=== PATIENT | male | born 1955 | race Caucasian/White ===

== ENCOUNTER 2017-02-03 16:18 | Inpatient (IN) ==
[2017-02-03] MEDS ORDERED: NON-FORMULARY MEDICATION 1 EACH EACH (Oxygen [Oxygen] 3 L) SCH (17:15)
[2017-02-03] MEDS ORDERED: CloNIDine Patch 0.1 MG PATCH (WEEKLY) TD SCH (17:15)
[2017-02-03] MEDS: *HR* Enoxaparin 40 MG/0.4 ML SYRINGE SQ SCH (20:17)
[2017-02-03] MEDS: Azelastine 0.1% Nasal Spray 30 ML BOTTLE NS SCH (20:17)
[2017-02-03] MEDS: Furosemide 40 MG TABLET PO SCH (20:17)
[2017-02-03] MEDS: Psyllium 1 PACKET POWD.PACK PO SCH (20:18)
[2017-02-03] MEDS: Budesonide/Formoterol 160/4.5 MDI IH SCH (20:47)
[2017-02-03] MEDS: ClonazePAM 0.5 MG TABLET PO PRN (22:28)
[2017-02-03] MEDS: *HR* OxyCODONE/APAP 10/325 TABLET PO PRN (22:32)
[2017-02-04] MEDS: *HR* OxyCODONE/APAP 10/325 TABLET PO PRN ×3 (05:42→18:11)
[2017-02-04] MEDS: *HR* Enoxaparin 40 MG/0.4 ML SYRINGE SQ SCH (05:42)
[2017-02-04] MEDS: Psyllium 1 PACKET POWD.PACK PO SCH ×2 (07:55→22:11)
[2017-02-04] MEDS: Cholecalciferol (D-3) 1,000 UNIT TABLET PO SCH (07:55)
[2017-02-04] MEDS: Loratadine 10 MG TABLET PO SCH (07:55)
[2017-02-04] MEDS: Azelastine 0.1% Nasal Spray 30 ML BOTTLE NS SCH ×2 (07:56→22:11)
[2017-02-04] MEDS: Fluticasone Propionate Nasal 50 MCG/SPRAY BOTTLE NS SCH (07:56)
[2017-02-04] MEDS: DALIRESP 500MCG PO SCH (07:59)
[2017-02-04] MEDS: INCRUSE ELIPTA IH SCH (08:00)
[2017-02-04] MEDS: Furosemide 40 MG TABLET PO SCH ×2 (08:00→10:52)
[2017-02-04] MEDS ORDERED: Aspirin Enteric Coated 81 MG Tablet PO SCH (09:00)
[2017-02-04] MEDS ORDERED: PredniSONE 20 MG TABLET PO SCH (09:00)
[2017-02-04] MEDS: Budesonide/Formoterol 160/4.5 MDI IH SCH ×2 (11:00→20:55)
--- NOTE | 2017-02-04 12:48 | General Surgery Progress Note ---
Date of Encounter: 02/04/17 Time of Encounter: 11:15 - Assessment and Plan (1) Superficial postoperative wound infection Current Visit: Yes Status: Acute Continue with iodoform packing until negative pressure wound dressing is available. White foam proximally and distally in the tunnels at the 12 and 6 o' clock position if possible black foam centrally in the wound. Apply negative pressure wound dressing -125 mmHg pressure Qualifiers: Encounter type: subsequent encounter Qualified Code(s): T81.4XXD - Infection following a procedure, subsequent encounter Subjective Narrative: The patient has had increased drainage from his wound. He is status post exploratory laparotomy and small bowel resection for small bowel obstruction. He has end-stage COPD and tremendous morbid obesity and was on the ventilator for 3 days during the postoperative period he had developed some drainage from his wound now has increased drainage. On physical examination the subcutaneous tissue is open with tunneling superiorly and inferiorly from the opened midportion wound. We will remove additional mariama. Packed the wound with iodoform until a wound VAC is available. They will apply wound VAC with black foam. Objective Vital Signs - Last 8 Hours Temp Pulse Resp BP Pulse Ox 02/04/17 11:13 111 18 154/72 97 02/04/17 10:46 99.4 F 111 18 154/72 97 02/04/17 10:33 94 L 02/04/17 08:19 24 94 L 02/04/17 07:34 99.0 F 123 18 90/57 98 Intake and Output 02/03/17 02/04/17 02/04/17 23:59 07:59 15:59 Output Total 200 / 200 Balance -200 / -200 Output: Urine 200 / 200 Other: Stool Size Copious Stool Consistency loose Stool Color Brown Blood Tinged # Voids 1 # Bowel Movements 1 Weight 137.438 kg - General physical appearance chronically ill, obese - Respiratory wheezing: bilateral (Decreased breath sounds bilaterally) - Cardiovascular Cardiovascular exam: Present: RRR, no murmurs/rubs/gallops - Incision Incision: Present: draining (The middle portion of the incision is opened. This tunneling superiorly and inferiorly. This is still superficial wound infection. This should be treated with negative pressure wound dressing) - Neurologic normal coordination, normal sensation Consult Discharge Plan - Plan Referrals: Radhames Lewis DO [Primary Care Provider] - 1 week
[2017-02-04] MEDS: Ketoconazole Shampoo 120 ML BOTTLE TP SCH (13:39)
--- NOTE | 2017-02-04 14:42 | Internal Med History&Physical ---
Date of Encounter: 02/04/17 Time of Encounter: 14:10 Assessment and Plan (1) Partial small bowel obstruction Current visit: No Status: Acute Status post lysis of adhesions and partial small bowel resection with primary anastomosis. Continue wound VAC and other intervention as per Dr. Reed (2) HTN (hypertension) Current visit: No Status: Chronic Will increase metoprolol and discontinue Norvasc because of edema. We will change Lasix to Bumex. Continue Cozaar Qualifiers: Hypertension type: essential hypertension Qualified Code(s): I10 - Essential (primary) hypertension (3) Obstructive sleep apnea Current visit: No Status: Chronic Continue CPAP/BiPAP as at home (4) Anemia Current visit: No Status: Chronic Will order anemia testing in a.m. Qualifiers: Anemia type: iron deficiency Iron deficiency anemia type: chronic blood loss Qualified Code(s): D50.0 - Iron deficiency anemia secondary to blood loss (chronic) (5) Edema Current visit: Yes Status: Chronic We will discontinue amlodipine and give Bumex instead of Lasix as per above. Qualifiers: Edema type: unspecified Qualified Code(s): R60.9 - Edema, unspecified (6) Borderline diabetes Current visit: No Status: Chronic Hemoglobin A1c was 6.0% on 12/20/2016. We will do Accu-Cheks with SSI. Internal Medicine - H&P: HPI Chief complaint: Bowel obstruction, weakness Admitted From: Hospital to Hospital Transfer Plans for Post Hospital Care: Home History of present illness: Mr. Contreras is a 61 year old male who was transferred to [facility] swing bed 2016 after a January 18 stay at [facility] [place] for bowel obstruction. He underwent partial small bowel resection with lysis of adhesions by Dr. Reed on 2016. His postop course was complicated a difficult extubation and delay of oral feedings requiring TPN briefly. It was felt he would benefit from swing bed stay and ongoing therapy prior to returning to independent living at home. He reports initial abdominal surgery was approximately 2007 for abdominal hernia. Mesh was placed at the surgery. He reports NAFLD and asymptomatic gallstones. He denies other disorders of his liver gallbladder or exocrine pancreas. He has GERD. He has not had colonoscopy done. Past Med Surg Social Fam HX - Past Medical History Medical history: cardiomyopathy, COPD, diabetes, GERD, hypertension, other Psychiatric history: anxiety, depression - Past Surgical History Surgical History: cataract, herniorrhaphy, other - Social History Smoking Status: Former smoker Smokeless Tobacco Status: No Alcohol use: rarely Drug use: none - Family History Father Family Member Ethnicity: Non- Living Status: Hx Family Cardiac Disorders: No Hx Family Respiratory Disorders: No Hx Family Cancer: Yes (pancreatic) Hx Family GI Disorders: No Hx Family Endocrine Disorder: Yes Hx Family Neuromuscular Disorders: No Hx Family Neurologic Disorders: No Hx Family HEENT Disorders: No Hx Family Autoimmune Disorders: No Mother Adopted: No Family Member Ethnicity: Non- Living Status: Hx Family Cardiac Disorders: Yes Hx Family Respiratory Disorders: Yes Hx Family Cancer: Yes (lung cancer) Hx Family GI Disorders: No Hx Family Endocrine Disorder: No Hx Family Neuromuscular Disorders: No Hx Family Neurologic Disorders: No Hx Family HEENT Disorders: No Hx Family Autoimmune Disorders: No Sister Living Status: Hx Family Cardiac Disorders: Yes Hx Family Respiratory Disorders: Yes Hx Family Cancer: No Hx Family GI Disorders: No Hx Family Endocrine Disorder: No Hx Family Neuromuscular Disorders: No Hx Family Neurologic Disorders: No Hx Family HEENT Disorders: No Hx Family Autoimmune Disorders: No Internal Medicine - H&P: Meds Albuterol Sulfate [Albuterol Inhaler] 2 puff IH Q4HR PRN 04/13/16 [History] Amlodipine Besylate 10 mg PO DAILY 04/13/16 [History] Azelastine 0.1% Nasal [place] [Astelin] 1 spray NS BID 04/13/16 [History] Budesonide/Formoterol 160/4.5 [Symbicort 160/4.5] 2 puff IH BIDR 04/13/16 [ History] Cetirizine HCl [Zyrtec] 10 mg PO DAILY 04/13/16 [History] ClonazePAM [Klonopin] 1 mg PO BID PRN 04/13/16 [History] Docusate [Colace] 300 mg PO BID PRN 04/13/16 [History] Ergocalciferol (VITAMIN D2) [Vitamin D] 400 unit PO DAILY 04/13/16 [History] Esomeprazole Magnesium [Nexium] 40 mg PO BID 04/13/16 [History] Fluticasone Propionate Nasal [Flonase] 2 spray NS DAILY 04/13/16 [History] Ketoconazole Shampoo [Nizoral Shampoo] 1 appl TP 3XW 04/13/16 [History] Polyethylene Glycol 3350 [MiraLAX] 17 gm PO DAILY 04/13/16 [History] Psyllium Seed (with Sugar) [Metamucil Powder] 1 each PO BID 04/13/16 [History] Roflumilast [Daliresp] 500 mcg PO DAILY 04/13/16 [History] Sodium Chloride [[place] Saline] 1 spray NS BID PRN 04/13/16 [History] Metoprolol [Lopressor] 12.5 mg PO BID #30 tablet 10/28/16 [Rx] Montelukast [Singulair] 10 mg PO HS #30 tablet 10/28/16 [Rx] Metoclopramide [Reglan] 10 mg PO ACHS 12/01/16 [History] Umeclidinium [place] [Incruse Ellipta] 62.5 mcg IH DAILY 12/01/16 [History] Aspirin [Lo-Dose Aspirin EC] 81 mg PO DAILY #30 tablet. 12/03/16 [Rx] Oxygen 3 l .ROUTE AD 12/18/16 [History] Ipratropium/Albuterol Neb [Duoneb] 3 ml IH [id number] 30 Days 01/07/17 [Rx] Losartan [Cozaar] 25 mg PO DAILY #30 tablet 01/07/17 [Rx] PredniSONE 10 mg PO DAILY #63 tablet 01/07/17 [Rx] CloNIDine Patch [Catapres-Tts] 0.1 mg TD QWEEK patch.tdwk 02/03/17 [Rx] Furosemide [Lasix] 40 mg PO BID #60 tablet 02/03/17 [Rx] GuaiFENesin ER [Mucinex] 600 mg PO BID PRN #0 tbbp.12hr 02/03/17 [Rx] Ipratropium/Albuterol Neb [Duoneb] 3 ml IH [id number] PRN inhsol 02/03/17 [Rx] OxyCODONE/APAP 10/325 [Percocet 10/325 MG] 1 each PO Q6HR PRN #20 tablet [Rx] Allergies morphine Allergy (Verified 01/18/17 10:35) Difficulty Breathing sulfamethoxazole [From Bactrim] Allergy (Verified 01/18/17 10:35) Hives trimethoprim [From Bactrim] Allergy (Verified 01/18/17 10:35) Hives codeine Adverse Reaction (Verified 01/18/17 10:35) Nausea All Systems PM: A 10-system review of systems was performed and is negative for pertinent findings except as documented above in the HPI. Review of systems: Gen.: He states his weight has been stable for several months Cardiovascular: He has a history of hypertension. He reports diagnosis of heart failure but echocardiogram done 01/01/2017 showed LVEF of 55-60%. There was no mention of diastolic dysfunction. There was left atrial enlargement 4.3 cm. The interventricular septum and posterior wall thickness measurements were elevated 1.3 and 1.4 cm respectively. There was no significant valvular abnormality seen. He had a Regadenoson EST 12/02/2016 which showed LVEF of 61% with no EKG or perfusion evidence of ischemia. He denies DVT or pulmonary embolus. Respiratory: He smoked from age [age] up to 3 packs per day. He has a diagnosis of COPD and wears oxygen 30/05 GI: As per history of present illness : Denies hematuria dysuria or kidney stones Neurologic: He denies large distribution strokes or seizures Endocrine: He reports a diagnosis of borderline diabetes. Hemoglobin A1c was 6.0% 12/20/2016. He denies thyroid disease but has hyperlipidemia Hematology/oncology: He has anemia but denies internal malignancies Psychiatric: He has anxiety and depression but denies other mental health issues [place] skeletal: He has DJD but denies gout or other bone joint or muscle disorders. - Constitutional Vitals: Temp Pulse Resp BP Pulse Ox 99.4 F 111 18 154/72 97 02/04/17 10:46 02/04/17 11:13 02/04/17 11:13 02/04/17 11:13 02/04/17 11:13 Exam: Gen.: He is a well-developed overweight male lying in bed who appears in minimal distress at present time. HEENT: Head is atraumatic and normocephalic. Eyes: EOMI. There is no scleral icterus. Mouth: Mucosa is moist. Neck: Supple and nontender. There is no thyromegaly or adenopathy noted. Heart: Regular without murmurs gallops or ectopics. Lungs: No wheezes or crackles are heard. Abdomen: He has a wound VAC in the midportion of the midabdominal incision. Some mariama been removed from the incision. The abdomen is nontender to palpation. Extremities: He has 2-3+ edema of the dorsum of the feet and lower anterior shins bilaterally. Dorsalis pedis and posterior tibial pulses are not palpable. He has minimal DJD changes of his hands. Neurologic: Mental status: He is talkative and a good historian. Cranial nerves : Smile is symmetric. Forehead wrinkles bilaterally. Tongue protrudes midline. EOMI. Motor: There is no pronator drift. Cerebellar: Finger to nose is intact bilaterally. Skin: Warm and dry
[2017-02-04] MEDS: Bumetanide 1 MG TABLET PO SCH (16:33)
[2017-02-04] MEDS: Aspirin Enteric Coated 81 MG Tablet PO SCH (16:34)
[2017-02-05] MEDS: *HR* OxyCODONE/APAP 10/325 TABLET PO PRN ×4 (00:33→23:04)
[2017-02-05] MEDS: ClonazePAM 0.5 MG TABLET PO PRN ×2 (00:34→18:24)
[2017-02-05 05:16] LABS: Hematocrit 29.9 % (37.5-50.1); Hemoglobin 9.8 g/dL (12.9-16.9); Mean Corpuscular HGB Conc 32.8 g/dL (31.6-35.5); Mean Corpuscular Hemoglobin 28.1 pg (28.0-33.3); Mean Corpuscular Volume 85.7 fL (83.0-100.0); Mean Platelet Volume 9.9 fL (9.4-12.4); Platelet Count 295 K/mcL (140-400); Red Blood Count 3.49 M/mcL (4.19-5.50); Red Cell Distribution Width 16.7 % (11.5-14.5)
[2017-02-05] MEDS: *HR* Enoxaparin 40 MG/0.4 ML SYRINGE SQ SCH (05:38)
[2017-02-05 06:43] LABS: Eosinophils # 0.3 K/mcL (0.0-0.6); Lymphocytes # 0.9 K/mcL (0.6-4.6); Monocytes # 0.9 K/mcL (0.0-1.3); Neutrophils # 12.2 K/mcL (1.6-8.9)
[2017-02-05 06:48] LABS: Anisocytosis 1+ (Not Present); Platelet Estimate Normal (Normal)
[2017-02-05] MEDS: Ondansetron ODT 4 MG TAB.RAPDIS SL PRN ×2 (08:44→16:41)
[2017-02-05] MEDS: Psyllium 1 PACKET POWD.PACK PO SCH ×2 (08:45→22:46)
[2017-02-05] MEDS: Cholecalciferol (D-3) 1,000 UNIT TABLET PO SCH (08:46)
[2017-02-05] MEDS: Loratadine 10 MG TABLET PO SCH (08:46)
[2017-02-05] MEDS: Bumetanide 1 MG TABLET PO SCH (08:46)
[2017-02-05] MEDS: Azelastine 0.1% Nasal Spray 30 ML BOTTLE NS SCH ×2 (08:46→22:50)
[2017-02-05] MEDS: Fluticasone Propionate Nasal 50 MCG/SPRAY BOTTLE NS SCH (08:46)
[2017-02-05] MEDS: DALIRESP 500MCG PO SCH (08:47)
[2017-02-05] MEDS: Budesonide/Formoterol 160/4.5 MDI IH SCH ×2 (09:14→22:13)
[2017-02-05] MEDS: INCRUSE ELIPTA IH SCH (12:30)
[2017-02-05 13:02] LABS: % Iron Saturation 6 % (20-55); Iron 12 mcg/dL (65-175); Transferrin 141 mg/dL (174-364)
[2017-02-05 13:22] LABS: Ferritin 667 ng/ml (22-275)
[2017-02-05 13:36] LABS: Folate 8.3 ng/mL (7.0-31.4)
--- NOTE | 2017-02-05 14:45 | Internal Med Progress Note ---
Date of Encounter: 02/05/17 Time of Encounter: 14:35 - Assessment and plan (1) Partial small bowel obstruction Current Visit: No Status: Acute Assessment and plan: February 05. Status post lysis of adhesions and partial small bowel resection with primary anastomosis. Continue wound VAC and other intervention as per Dr. Reed (2) HTN (hypertension) Current Visit: No Status: Chronic Assessment and plan: February 05. Continue metoprolol, Bumex, and Cozaar. Qualifiers: Hypertension type: essential hypertension Qualified Code(s): I10 - Essential (primary) hypertension (3) Obstructive sleep apnea Current Visit: No Status: Chronic Assessment and plan: February 05. Continue CPAP/BiPAP as at home (4) Anemia Current Visit: No Status: Chronic Assessment and plan: February 05. Serum iron and transferrin saturation are low but transferrin is also low with ferritin significantly elevated. Continue to monitor CBC. Qualifiers: Anemia type: iron deficiency Iron deficiency anemia type: chronic blood loss Qualified Code(s): D50.0 - Iron deficiency anemia secondary to blood loss (chronic) (5) Edema Current Visit: Yes Status: Chronic Assessment and plan: February 05. Remain off Norvasc and continue Bumex. Qualifiers: Edema type: unspecified Qualified Code(s): R60.9 - Edema, unspecified (6) Borderline diabetes Current Visit: No Status: Chronic Assessment and plan: February 05. Hemoglobin A1c was 6.0% on 12/20/2016. He is diet controlled at present. (7) Pneumonia Current Visit: No Status: Acute Assessment and plan: Will give IV Zosyn and Levaquin with Robitussin and probiotic Qualifiers: Pneumonia type: due to unspecified organism Laterality: left Lung location: lower lobe of lung Qualified Code(s): J18.1 - Lobar pneumonia, unspecified organism - Subjective Interval history: February 05. He states his dyspnea has worsened. He has cough productive of green/ yellow sputum - Constitutional Vitals: Temp Pulse Resp BP Pulse Ox 97.7 F 92 17 92/59 97 02/04/17 18:40 02/05/17 09:00 02/05/17 12:33 02/05/17 09:00 02/05/17 12:33 Exam: He is resting comfortably in a chair. He coughed minimally during examination. His lungs show no wheezes crackles or egophony. Edema is slightly improved in his lower legs. I reviewed his medications and lab results. Internal Medicine: Result - Labs CBC & Chem 7: 02/05/17 04:48 Labs: Short CBC 02/05/17 Range/Units 04:48 WBC 14.2 H D (4.3-11.1) K/mcL Hgb 9.8 L (12.9-16.9) g/dL Hct 29.9 L (37.5-50.1) % Plt Count 295 (140-400) K/mcL Neutrophils # 12.2 H (1.6-8.9) K/mcL - Impressions Impressions Chest X-Ray 02/04/17 17:40 IMPRESSION: Small to moderate left pleural effusion and left basilar airspace opacities. D/ / Nakul Lopez MD / Nakul Lopez MD Interpreting Provider: Nakul Lopez MD Consult Discharge Plan - Plan Referrals: Radhames Lewis DO [Primary Care Provider] - 1 week
[2017-02-05] MEDS: Levofloxacin 750 MG/150 ML 750 MG/150 ML BAG IVPB SCH (16:56)
[2017-02-05] MEDS: Piperacillin/Tazobactam 3.375 GM in D5% in Water (Mini-Bag+) 100 ML IVPB SCH (18:21)
[2017-02-05] MEDS: Lactobacillus 1 EACH CAP.SPRINK PO SCH (22:46)
[2017-02-06] MEDS: Piperacillin/Tazobactam 3.375 GM in D5% in Water (Mini-Bag+) 100 ML IVPB SCH ×4 (04:18→20:38)
[2017-02-06 06:15] LABS: Hematocrit 29.1 % (37.5-50.1); Hemoglobin 9.4 g/dL (12.9-16.9); Mean Corpuscular HGB Conc 32.3 g/dL (31.6-35.5); Mean Corpuscular Volume 86.6 fL (83.0-100.0); Mean Platelet Volume 10.1 fL (9.4-12.4); Platelet Count 297 K/mcL (140-400); Red Blood Count 3.36 M/mcL (4.19-5.50); Red Cell Distribution Width 16.5 % (11.5-14.5)
[2017-02-06 06:32] LABS: BUN/Creatinine Ratio 18 (6-26); Blood Urea Nitrogen 22 mg/dL (8-26); Calcium 8.1 mg/dL (8.6-10.8); Carbon Dioxide 29 mEq/L (19-29); Chloride 93 mEq/L (98-109); Glucose 155 mg/dL (70-99); Osmolality,Calculated 288 (280-300); Potassium 3.3 mEq/L (3.5-4.5); Sodium 136 mEq/L (136-145); eGFR For African Americans > 60 (> 60); eGFR For Non-African Americans 58 (> 60)
[2017-02-06] MEDS: *HR* Enoxaparin 40 MG/0.4 ML SYRINGE SQ SCH (07:17)
[2017-02-06] MEDS: *HR* OxyCODONE/APAP 10/325 TABLET PO PRN ×3 (07:21→21:36)
[2017-02-06 07:41] LABS: Lymphocytes # 1.2 K/mcL (0.6-4.6); Monocytes # 0.5 K/mcL (0.0-1.3); Neutrophils # 9.7 K/mcL (1.6-8.9); Toxic Granulation Present (Not Present)
[2017-02-06] MEDS: Ipratropium/Albuterol Neb 3 ML IH PRN ×2 (09:30→14:02)
[2017-02-06] MEDS: Budesonide/Formoterol 160/4.5 MDI IH SCH ×2 (09:34→21:54)
[2017-02-06] MEDS: Bumetanide 1 MG TABLET PO SCH (09:41)
[2017-02-06] MEDS: Cholecalciferol (D-3) 1,000 UNIT TABLET PO SCH (09:42)
[2017-02-06] MEDS: Lactobacillus 1 EACH CAP.SPRINK PO SCH ×2 (09:42→21:29)
[2017-02-06] MEDS: Loratadine 10 MG TABLET PO SCH (09:43)
[2017-02-06] MEDS: Levofloxacin 750 MG/150 ML 750 MG/150 ML BAG IVPB SCH (09:44)
[2017-02-06] MEDS: Psyllium 1 PACKET POWD.PACK PO SCH ×2 (09:44→21:29)
[2017-02-06] MEDS: DALIRESP 500MCG PO SCH (12:02)
[2017-02-06] MEDS: INCRUSE ELIPTA IH SCH (12:02)
[2017-02-06] MEDS: Fluticasone Propionate Nasal 50 MCG/SPRAY BOTTLE NS SCH (12:08)
[2017-02-06] MEDS: Azelastine 0.1% Nasal Spray 30 ML BOTTLE NS SCH ×2 (12:08→21:58)
--- NOTE | 2017-02-06 12:40 | Internal Med Progress Note ---
Date of Encounter: 02/06/17 Time of Encounter: 12:30 - Assessment and plan (1) Partial small bowel obstruction Current Visit: No Status: Acute Assessment and plan: February 05. Status post lysis of adhesions and partial small bowel resection with primary anastomosis. Continue wound VAC and other intervention as per Dr. Reed (2) HTN (hypertension) Current Visit: No Status: Chronic Assessment and plan: February 05. Continue metoprolol, Bumex, and Cozaar. February 06. Blood pressure is borderline low. We will discontinue Cozaar and clonidine. Continue metoprolol and Bumex for now Qualifiers: Hypertension type: essential hypertension Qualified Code(s): I10 - Essential (primary) hypertension (3) Obstructive sleep apnea Current Visit: No Status: Chronic Assessment and plan: February 05. Continue CPAP/BiPAP as at home (4) Anemia Current Visit: No Status: Chronic Assessment and plan: February 05. Serum iron and transferrin saturation are low but transferrin is also low with ferritin significantly elevated. Continue to monitor CBC. Qualifiers: Anemia type: iron deficiency Iron deficiency anemia type: chronic blood loss Qualified Code(s): D50.0 - Iron deficiency anemia secondary to blood loss (chronic) (5) Edema Current Visit: Yes Status: Chronic Assessment and plan: February 05. Remain off Norvasc and continue Bumex. February 06. Continues to improve off Norvasc and using Bumex Qualifiers: Edema type: unspecified Qualified Code(s): R60.9 - Edema, unspecified (6) Borderline diabetes Current Visit: No Status: Chronic Assessment and plan: February 05. Hemoglobin A1c was 6.0% on 12/20/2016. He is diet controlled at present. (7) Pneumonia Current Visit: No Status: Acute Assessment and plan: February 05. Will give IV Zosyn and Levaquin with Robitussin and probiotic February 2. Continue IV Zosyn and Levaquin Qualifiers: Pneumonia type: due to unspecified organism Laterality: left Lung location: lower lobe of lung Qualified Code(s): J18.1 - Lobar pneumonia, unspecified organism (8) Left knee pain Current Visit: Yes Status: Acute Assessment and plan: February 06. We will order uric acid level was other labs in a.m. Qualifiers: Chronicity: acute Qualified Code(s): M25.562 - Pain in left knee - Subjective Interval history: February 05. He states his dyspnea has worsened. He has cough productive of green/ yellow sputum February 06. He states his dyspnea is slightly lessened. He complains of some discomfort in his left knee. - Constitutional Vitals: Temp Pulse Resp BP Pulse Ox 97.7 F 101 15 104/66 95 02/06/17 07:21 02/06/17 07:21 02/06/17 09:36 02/06/17 07:21 02/06/17 09:36 Exam: He is sitting in a chair and appears comfortable. His feet are elevated on a stool. His edema appears slightly improved. Lungs show no wheezes or crackles. I reviewed his medications and lab results. Internal Medicine: Result - Labs CBC & Chem 7: 02/06/17 05:40 02/06/17 05:40 Labs: Short CBC 02/06/17 Range/Units 05:40 WBC 11.5 H (4.3-11.1) K/mcL Hgb 9.4 L (12.9-16.9) g/dL Hct 29.1 L (37.5-50.1) % Plt Count 297 (140-400) K/mcL Neutrophils # 9.7 H (1.6-8.9) K/mcL BMP 02/06/17 05:40 Sodium 136 Potassium 3.3 L Chloride 93 L Carbon Dioxide 29 BUN 22 Creatinine 1.25 Glucose 155 H Calcium 8.1 L Consult Discharge Plan - Plan Referrals: Radhames Lewis DO [Primary Care Provider] - 1 week
[2017-02-06] MEDS: Aspirin Enteric Coated 81 MG Tablet PO SCH (13:55)
[2017-02-06] MEDS: Simethicone 80 MG TAB.CHEW PO PRN (14:55)
[2017-02-06] MEDS: ClonazePAM 0.5 MG TABLET PO PRN (17:17)
[2017-02-06] MEDS: Ondansetron ODT 4 MG TAB.RAPDIS SL PRN (20:38)
[2017-02-07] MEDS: Piperacillin/Tazobactam 3.375 GM in D5% in Water (Mini-Bag+) 100 ML IVPB SCH ×2 (04:08→15:50)
[2017-02-07] MEDS: *HR* Enoxaparin 40 MG/0.4 ML SYRINGE SQ SCH (04:58)
[2017-02-07] MEDS: *HR* OxyCODONE/APAP 10/325 TABLET PO PRN ×2 (05:01→20:34)
[2017-02-07 06:25] LABS: Hematocrit 28.1 % (37.5-50.1); Hemoglobin 9.1 g/dL (12.9-16.9); Mean Corpuscular HGB Conc 32.4 g/dL (31.6-35.5); Mean Corpuscular Hemoglobin 28.2 pg (28.0-33.3); Mean Platelet Volume 10.2 fL (9.4-12.4); Platelet Count 316 K/mcL (140-400); Red Blood Count 3.23 M/mcL (4.19-5.50); Red Cell Distribution Width 16.4 % (11.5-14.5)
[2017-02-07 06:49] LABS: BUN/Creatinine Ratio 11 (6-26); Blood Urea Nitrogen 15 mg/dL (8-26); Calcium 8.1 mg/dL (8.6-10.8); Carbon Dioxide 30 mEq/L (19-29); Chloride 93 mEq/L (98-109); Glucose 109 mg/dL (70-99); Osmolality,Calculated 281 (280-300); Potassium 3.6 mEq/L (3.5-4.5); Sodium 135 mEq/L (136-145); Uric Acid 5.6 mg/dL (3.5-7.2); eGFR For African Americans > 60 (> 60); eGFR For Non-African Americans 54 (> 60)
[2017-02-07 07:30] LABS: Basophils # 0.2 K/mcL (0.0-0.2); Eosinophils # 0.2 K/mcL (0.0-0.6); Lymphocytes # 2.1 K/mcL (0.6-4.6); Monocytes # 0.5 K/mcL (0.0-1.3); Neutrophils # 7.1 K/mcL (1.6-8.9); Platelet Estimate Normal (Normal)
[2017-02-07] MEDS: Lactobacillus 1 EACH CAP.SPRINK PO SCH ×2 (09:41→20:34)
[2017-02-07] MEDS: Bumetanide 1 MG TABLET PO SCH (09:41)
[2017-02-07] MEDS: Psyllium 1 PACKET POWD.PACK PO SCH ×2 (09:41→20:34)
[2017-02-07] MEDS: Cholecalciferol (D-3) 1,000 UNIT TABLET PO SCH (09:41)
[2017-02-07] MEDS: Loratadine 10 MG TABLET PO SCH (09:41)
[2017-02-07] MEDS: Fluticasone Propionate Nasal 50 MCG/SPRAY BOTTLE NS SCH (09:42)
[2017-02-07] MEDS: Ondansetron ODT 4 MG TAB.RAPDIS SL PRN ×2 (09:42→20:35)
[2017-02-07] MEDS: Levofloxacin 750 MG/150 ML 750 MG/150 ML BAG IVPB SCH (09:42)
[2017-02-07] MEDS: ClonazePAM 0.5 MG TABLET PO PRN ×2 (09:42→20:34)
[2017-02-07] MEDS: Azelastine 0.1% Nasal Spray 30 ML BOTTLE NS SCH ×2 (09:42→20:33)
[2017-02-07] MEDS: Budesonide/Formoterol 160/4.5 MDI IH SCH ×2 (10:48→21:52)
[2017-02-07] MEDS: Ipratropium/Albuterol Neb 3 ML IH PRN ×2 (10:48→21:53)
[2017-02-07] MEDS: DALIRESP 500MCG PO SCH (10:54)
[2017-02-07] MEDS: Ketoconazole Shampoo 120 ML BOTTLE TP SCH (10:54)
[2017-02-07] MEDS: INCRUSE ELIPTA IH SCH (10:55)
--- NOTE | 2017-02-07 14:39 | Internal Med Progress Note ---
Date of Encounter: 02/07/17 Time of Encounter: 14:30 - Assessment and plan (1) Partial small bowel obstruction Current Visit: No Status: Acute Assessment and plan: February 05. Status post lysis of adhesions and partial small bowel resection with primary anastomosis. Continue wound VAC and other intervention as per Dr. Reed (2) HTN (hypertension) Current Visit: No Status: Chronic Assessment and plan: February 05. Continue metoprolol, Bumex, and Cozaar. February 2. Blood pressure is borderline low. We will discontinue Cozaar and clonidine. Continue metoprolol and Bumex for now Qualifiers: Hypertension type: essential hypertension Qualified Code(s): I10 - Essential (primary) hypertension (3) Obstructive sleep apnea Current Visit: No Status: Chronic Assessment and plan: February 05. Continue CPAP/BiPAP as at home (4) Anemia Current Visit: No Status: Chronic Assessment and plan: February 05. Serum iron and transferrin saturation are low but transferrin is also low with ferritin significantly elevated. Continue to monitor CBC. February 07. Hemoglobin has decreased to 9.1. We will continue to monitor. Qualifiers: Anemia type: iron deficiency Iron deficiency anemia type: chronic blood loss Qualified Code(s): D50.0 - Iron deficiency anemia secondary to blood loss (chronic) (5) Edema Current Visit: Yes Status: Chronic Assessment and plan: February 05. Remain off Norvasc and continue Bumex. February 06. Continues to improve off Norvasc and using Bumex Qualifiers: Edema type: unspecified Qualified Code(s): R60.9 - Edema, unspecified (6) Borderline diabetes Current Visit: No Status: Chronic Assessment and plan: February 05. Hemoglobin A1c was 6.0% on 12/20/2016. He is diet controlled at present. (7) Pneumonia Current Visit: No Status: Acute Assessment and plan: February 05. Will give IV Zosyn and Levaquin with Robitussin and probiotic February 2. Continue IV Zosyn and Levaquin Qualifiers: Pneumonia type: due to unspecified organism Laterality: left Lung location: lower lobe of lung Qualified Code(s): J18.1 - Lobar pneumonia, unspecified organism (8) Left knee pain Current Visit: Yes Status: Acute Assessment and plan: February 06. We will order uric acid level was other labs in a.m. February 07. Uric acid level was normal at 5.6. D-dimer was significantly elevated at 2095. Proceed with bilateral leg venous Doppler studies Qualifiers: Chronicity: acute Qualified Code(s): M25.562 - Pain in left knee - Subjective Interval history: February 05. He states his dyspnea has worsened. He has cough productive of green/ yellow sputum February 06. He states his dyspnea is slightly lessened. He complains of some discomfort in his left knee. February 07. His dyspnea is improved. He still has some discomfort in his left thigh. - Constitutional Vitals: Temp Pulse Resp BP Pulse Ox 98.5 F 104 18 99/59 96 02/07/17 07:05 02/07/17 13:44 02/07/17 13:44 02/07/17 13:44 02/07/17 13:44 Exam: He is resting comfortably on the side of the bed. Respirations are not labored. Lungs are clear without wheezes crackles or egophony. His edema appears to be less. I reviewed his medications and lab results. Internal Medicine: Result - Labs CBC & Chem 7: 02/07/17 05:22 02/07/17 05:22 Labs: Short CBC 02/07/17 Range/Units 05:22 WBC 11.5 H (4.3-11.1) K/mcL Hgb 9.1 L (12.9-16.9) g/dL Hct 28.1 L (37.5-50.1) % Plt Count 316 (140-400) K/mcL Neutrophils # 7.1 (1.6-8.9) K/mcL BMP 02/07/17 05:22 Sodium 135 L Potassium 3.6 Chloride 93 L Carbon Dioxide 30 H BUN 15 Creatinine 1.33 H Glucose 109 H Calcium 8.1 L - ABG Interpretation ABG results: PT/INR, D-dimer D-Dimer 2095 ng/mLFEU (0-500) H 02/07/17 05:22 Consult Discharge Plan - Plan Referrals: Radhames Lewis DO [Primary Care Provider] - 1 week
--- NOTE | 2017-02-07 17:22 | Venous Imaging Report ---
LE Venous Duplex Patient Name:Júnior Contreras Order Number:[id number] Procedure Date:02/07/2017 Date:1955ge:61 yrs Gender:Male Location:[facility] Room #: 46 Housing Case Manager:Royce Morales GIOVANI Referring MD:Ben Abrams MD Reading MD:Adam Bacon MD , FACS Primary Indications:Edema Secondary Indications: Impressions: Bilateral lower extremity: normal superficial and deep exam. Findings Venous Duplex Results: Right: Venous imaging of the lower extremity reveals full patency and normal vessel compressibility of the right distal iliac, right common femoral, right superficial femoral, right popliteal, right posterior tibial, right peroneal, right saphenofemoral junction, right great saphenous and right lesser saphenous. Doppler signals in the evaluated veins were normal. Left: Venous imaging of the lower extremity reveals full patency and normal vessel compressibility of the left distal iliac, left common femoral, left superficial femoral, left popliteal, left posterior tibial, left peroneal, left saphenofemoral junction, left great saphenous and left lesser saphenous. Doppler signals in the evaluated veins were normal. Lower Extremity Venous Duplex Side Vein Compress Spontaneous Flow Augment Diameter (cm) Depth (cm) Right Distal Iliac Normal Yes Phasic Yes Right Common Femoral Normal Yes Phasic Yes Right Superficial Femoral Normal Yes Phasic Yes Right Popliteal Normal Yes Phasic Yes Right Posterior Tibial Normal Yes Phasic Yes Right Peroneal Normal Yes Phasic Yes Right Saphenofemoral [place] Normal Yes Phasic Yes Right Great Saphenous Normal Yes Phasic Yes Right Lesser Saphenous Normal Yes Phasic Yes Left Distal Iliac Normal Yes Phasic Yes Left Common Femoral Normal Yes Phasic Yes Left Superficial Femoral Normal Yes Phasic Yes Left Popliteal Normal Yes Phasic Yes Left Posterior Tibial Normal Yes Phasic Yes Left Peroneal Normal Yes Phasic Yes Left Saphenofemoral [place] Normal Yes Phasic Yes Left Great Saphenous Normal Yes Phasic Yes Left Lesser Saphenous Normal Yes Phasic Yes Updated by Adam Bacon MD, FACS on 02/07/2017 5:17:30 PM Adam Bacon MD electronically signed on 02/07/2017 5:17:58 PM with status of Final
[2017-02-08] MEDS: Piperacillin/Tazobactam 3.375 GM in D5% in Water (Mini-Bag+) 100 ML IVPB SCH ×3 (00:52→12:29)
[2017-02-08 06:05] LABS: Hematocrit 27.5 % (37.5-50.1); Hemoglobin 8.6 g/dL (12.9-16.9); Mean Corpuscular HGB Conc 31.3 g/dL (31.6-35.5); Mean Corpuscular Hemoglobin 27.5 pg (28.0-33.3); Mean Corpuscular Volume 87.9 fL (83.0-100.0); Mean Platelet Volume 10.5 fL (9.4-12.4); Platelet Count 302 K/mcL (140-400); Red Blood Count 3.13 M/mcL (4.19-5.50); Red Cell Distribution Width 16.8 % (11.5-14.5)
[2017-02-08 06:22] LABS: BUN/Creatinine Ratio 8 (6-26); Blood Urea Nitrogen 10 mg/dL (8-26); Calcium 8.2 mg/dL (8.6-10.8); Carbon Dioxide 31 mEq/L (19-29); Chloride 95 mEq/L (98-109); Glucose 96 mg/dL (70-99); Magnesium 1.2 mg/dL (1.6-2.6); Osmolality,Calculated 285 (280-300); Potassium 3.4 mEq/L (3.5-4.5); Sodium 138 mEq/L (136-145); eGFR For African Americans > 60 (> 60); eGFR For Non-African Americans 56 (> 60)
[2017-02-08] MEDS: *HR* Enoxaparin 40 MG/0.4 ML SYRINGE SQ SCH (06:29)
[2017-02-08 09:00] LABS: Lymphocytes # 1.6 K/mcL (0.6-4.6); Monocytes # 0.4 K/mcL (0.0-1.3); Neutrophils # 6.7 K/mcL (1.6-8.9)
[2017-02-08 09:01] LABS: Anisocytosis 1+ (Not Present); Platelet Estimate Normal (Normal)
[2017-02-08] MEDS: Azelastine 0.1% Nasal Spray 30 ML BOTTLE NS SCH ×2 (09:37→21:06)
[2017-02-08] MEDS: Bumetanide 1 MG TABLET PO SCH (09:38)
[2017-02-08] MEDS: Loratadine 10 MG TABLET PO SCH (09:39)
[2017-02-08] MEDS: Lactobacillus 1 EACH CAP.SPRINK PO SCH ×2 (09:39→21:07)
[2017-02-08] MEDS: Fluticasone Propionate Nasal 50 MCG/SPRAY BOTTLE NS SCH (09:39)
[2017-02-08] MEDS: Levofloxacin 750 MG/150 ML 750 MG/150 ML BAG IVPB SCH ×2 (09:40→12:30)
[2017-02-08] MEDS: Psyllium 1 PACKET POWD.PACK PO SCH ×2 (09:41→21:09)
[2017-02-08] MEDS: Cholecalciferol (D-3) 1,000 UNIT TABLET PO SCH (09:44)
[2017-02-08] MEDS: DALIRESP 500MCG PO SCH (09:44)
[2017-02-08] MEDS: INCRUSE ELIPTA IH SCH (10:11)
[2017-02-08] MEDS: Ondansetron ODT 4 MG TAB.RAPDIS SL PRN ×3 (10:13→21:07)
[2017-02-08] MEDS: Budesonide/Formoterol 160/4.5 MDI IH SCH ×2 (11:45→23:24)
[2017-02-08] MEDS: Aspirin Enteric Coated 81 MG Tablet PO SCH (15:07)
[2017-02-08] MEDS: *HR* OxyCODONE/APAP 10/325 TABLET PO PRN ×2 (15:15→21:03)
--- NOTE | 2017-02-08 16:41 | Internal Med Progress Note ---
Date of Encounter: 02/08/17 Time of Encounter: 16:30 - Assessment and plan (1) Partial small bowel obstruction Current Visit: No Status: Acute Assessment and plan: February 05. Status post lysis of adhesions and partial small bowel resection with primary anastomosis. Continue wound VAC and other intervention as per Dr. Reed (2) HTN (hypertension) Current Visit: No Status: Chronic Assessment and plan: February 05. Continue metoprolol, Bumex, and Cozaar. February 2. Blood pressure is borderline low. We will discontinue Cozaar and clonidine. Continue metoprolol and Bumex for now Qualifiers: Hypertension type: essential hypertension Qualified Code(s): I10 - Essential (primary) hypertension (3) Obstructive sleep apnea Current Visit: No Status: Chronic Assessment and plan: February 05. Continue CPAP/BiPAP as at home (4) Anemia Current Visit: No Status: Chronic Assessment and plan: February 05. Serum iron and transferrin saturation are low but transferrin is also low with ferritin significantly elevated. Continue to monitor CBC. February 07. Hemoglobin has decreased to 9.1. We will continue to monitor. February 08. Hemoglobin has declined further to 8.6. Will discontinue aspirin for now. Qualifiers: Anemia type: iron deficiency Iron deficiency anemia type: chronic blood loss Qualified Code(s): D50.0 - Iron deficiency anemia secondary to blood loss (chronic) (5) Edema Current Visit: Yes Status: Chronic Assessment and plan: February 05. Remain off Norvasc and continue Bumex. February 2. Continues to improve off Norvasc and using Bumex February 08. Will order RASHMI liame. We will increase Bumex to 2 mg daily. Qualifiers: Edema type: unspecified Qualified Code(s): R60.9 - Edema, unspecified (6) Borderline diabetes Current Visit: No Status: Chronic Assessment and plan: February 05. Hemoglobin A1c was 6.0% on 12/20/2016. He is diet controlled at present. (7) Pneumonia Current Visit: No Status: Acute Assessment and plan: February 05. Will give IV Zosyn and Levaquin with Robitussin and probiotic February 2. Continue IV Zosyn and Levaquin February 08. IV access was lost without success in regaining it on multiple attempts. We will change to oral antibiotics. Qualifiers: Pneumonia type: due to unspecified organism Laterality: left Lung location: lower lobe of lung Qualified Code(s): J18.1 - Lobar pneumonia, unspecified organism (8) Left knee pain Current Visit: Yes Status: Acute Assessment and plan: February 06. We will order uric acid level was other labs in a.m. February 07. Uric acid level was normal at 5.6. D-dimer was significantly elevated at 2094. Proceed with bilateral leg venous Doppler studies February 08. Venous Doppler was negative for DVT. Continue present treatment Qualifiers: Chronicity: acute Qualified Code(s): M25.562 - Pain in left knee (9) Hypomagnesemia Current Visit: Yes Status: Acute Assessment and plan: February 08. We will give magnesium oxide and monitor labs (10) Hypokalemia Current Visit: Yes Status: Acute Assessment and plan: February 08. Will increase potassium chloride dose - Subjective Interval history: February 05. He states his dyspnea has worsened. He has cough productive of green/ yellow sputum February 06. He states his dyspnea is slightly lessened. He complains of some discomfort in his left knee. February 07. His dyspnea is improved. He still has some discomfort in his left thigh. February 08. His dyspnea remains improved. He does not mention pain in his left thigh now. He does note edema has persisted. - Constitutional Vitals: Temp Pulse Resp BP Pulse Ox 99.8 F H 102 20 118/62 98 02/08/17 15:05 02/08/17 15:05 02/08/17 15:05 02/08/17 15:05 02/08/17 15:24 Exam: He is resting comfortably in a chair. His feet are elevated. His edema still 2 -3+ bilaterally. Lungs show no wheezes or crackles. Heart tones are soft. I reviewed his medications and lab results. Internal Medicine: Result - Labs CBC & Chem 7: 02/08/17 04:30 02/08/17 04:30 Labs: Short CBC 02/08/17 Range/Units 04:30 WBC 9.8 (4.3-11.1) K/mcL Hgb 8.6 L (12.9-16.9) g/dL Hct 27.5 L (37.5-50.1) % Plt Count 302 (140-400) K/mcL Neutrophils # 6.7 (1.6-8.9) K/mcL BMP 02/08/17 04:30 Sodium 138 Potassium 3.4 L Chloride 95 L Carbon Dioxide 31 H BUN 10 Creatinine 1.29 H Glucose 96 Calcium 8.2 L - ABG Interpretation ABG results: PT/INR, D-dimer D-Dimer 2095 ng/mLFEU (0-500) H 02/07/17 05:22 Consult Discharge Plan - Plan Referrals: Radhames Lewis DO [Primary Care Provider] - 1 week
[2017-02-08] MEDS: ClonazePAM 0.5 MG TABLET PO PRN (21:06)
[2017-02-08] MEDS: Magnesium Oxide 400 MG TABLET PO SCH (21:08)
[2017-02-09] MEDS: *HR* Enoxaparin 40 MG/0.4 ML SYRINGE SQ SCH (06:37)
[2017-02-09] MEDS: Budesonide/Formoterol 160/4.5 MDI IH SCH ×2 (08:55→21:45)
[2017-02-09] MEDS: Ipratropium/Albuterol Neb 3 ML IH PRN ×2 (08:55→21:45)
[2017-02-09] MEDS: Bumetanide 1 MG TABLET PO SCH (09:12)
[2017-02-09] MEDS: Cholecalciferol (D-3) 1,000 UNIT TABLET PO SCH (09:12)
[2017-02-09] MEDS: Magnesium Oxide 400 MG TABLET PO SCH ×2 (09:13→21:09)
[2017-02-09] MEDS: Lactobacillus 1 EACH CAP.SPRINK PO SCH ×2 (09:13→21:10)
[2017-02-09] MEDS: Loratadine 10 MG TABLET PO SCH (09:13)
[2017-02-09] MEDS: Psyllium 1 PACKET POWD.PACK PO SCH ×2 (09:16→21:10)
[2017-02-09] MEDS: Ketoconazole Shampoo 120 ML BOTTLE TP SCH (12:57)
[2017-02-09] MEDS: Azelastine 0.1% Nasal Spray 30 ML BOTTLE NS SCH ×2 (12:57→21:14)
[2017-02-09] MEDS: Fluticasone Propionate Nasal 50 MCG/SPRAY BOTTLE NS SCH (12:57)
[2017-02-09] MEDS: DALIRESP 500MCG PO SCH (12:58)
[2017-02-09] MEDS: *HR* OxyCODONE/APAP 10/325 TABLET PO PRN (16:40)
[2017-02-09] MEDS: INCRUSE ELIPTA IH SCH (19:40)
[2017-02-10] MEDS: Ipratropium/Albuterol Neb 3 ML IH PRN ×4 (02:37→17:48)
[2017-02-10 04:49] LABS: Hematocrit 25.3 % (37.5-50.1); Hemoglobin 8.1 g/dL (12.9-16.9); Mean Corpuscular Volume 87.5 fL (83.0-100.0); Mean Platelet Volume 9.2 fL (9.4-12.4); Platelet Count 250 K/mcL (140-400); Red Blood Count 2.89 M/mcL (4.19-5.50); Red Cell Distribution Width 16.3 % (11.5-14.5)
[2017-02-10 05:07] LABS: BUN/Creatinine Ratio 10 (6-26); Blood Urea Nitrogen 11 mg/dL (8-26); Carbon Dioxide 29 mEq/L (19-29); Chloride 98 mEq/L (98-109); Glucose 128 mg/dL (70-99); Magnesium 1.1 mg/dL (1.6-2.6); Osmolality,Calculated 287 (280-300); Potassium 3.7 mEq/L (3.5-4.5); Sodium 138 mEq/L (136-145); eGFR For African Americans > 60 (> 60); eGFR For Non-African Americans > 60 (> 60)
[2017-02-10] MEDS: *HR* Enoxaparin 40 MG/0.4 ML SYRINGE SQ SCH (06:16)
[2017-02-10 07:37] LABS: Eosinophils # 0.2 K/mcL (0.0-0.6); Lymphocytes # 1.2 K/mcL (0.6-4.6); Monocytes # 0.5 K/mcL (0.0-1.3); Neutrophils # 9.4 K/mcL (1.6-8.9); Toxic Granulation Present (Not Present)
[2017-02-10] MEDS: Budesonide/Formoterol 160/4.5 MDI IH SCH ×2 (08:46→21:22)
[2017-02-10] MEDS: Cholecalciferol (D-3) 1,000 UNIT TABLET PO SCH (08:55)
[2017-02-10] MEDS: Magnesium Oxide 400 MG TABLET PO SCH ×2 (08:55→20:46)
[2017-02-10] MEDS: Lactobacillus 1 EACH CAP.SPRINK PO SCH ×2 (08:55→20:45)
[2017-02-10] MEDS: *HR* OxyCODONE/APAP 10/325 TABLET PO PRN ×2 (08:56→15:48)
[2017-02-10] MEDS: Loratadine 10 MG TABLET PO SCH (08:56)
[2017-02-10] MEDS: Bumetanide 1 MG TABLET PO SCH (08:56)
[2017-02-10] MEDS: Psyllium 1 PACKET POWD.PACK PO SCH ×2 (08:56→20:45)
[2017-02-10] MEDS: DALIRESP 500MCG PO SCH (08:57)
[2017-02-10] MEDS: INCRUSE ELIPTA IH SCH (08:57)
[2017-02-10] MEDS: Fluticasone Propionate Nasal 50 MCG/SPRAY BOTTLE NS SCH (09:00)
[2017-02-10] MEDS: Azelastine 0.1% Nasal Spray 30 ML BOTTLE NS SCH (09:00)
[2017-02-10] MEDS: ClonazePAM 0.5 MG TABLET PO PRN ×2 (15:49→21:30)
[2017-02-11] MEDS: Azelastine 0.1% Nasal Spray 30 ML BOTTLE NS SCH ×3 (00:33→20:32)
[2017-02-11] MEDS: Ipratropium/Albuterol Neb 3 ML IH PRN ×4 (03:09→20:50)
[2017-02-11] MEDS: *HR* Enoxaparin 40 MG/0.4 ML SYRINGE SQ SCH (06:04)
[2017-02-11] MEDS: *HR* OxyCODONE/APAP 10/325 TABLET PO PRN ×2 (08:07→20:32)
[2017-02-11] MEDS: Psyllium 1 PACKET POWD.PACK PO SCH ×2 (08:08→20:32)
[2017-02-11] MEDS: Bumetanide 1 MG TABLET PO SCH (08:08)
[2017-02-11] MEDS: Cholecalciferol (D-3) 1,000 UNIT TABLET PO SCH (08:08)
[2017-02-11] MEDS: Magnesium Oxide 400 MG TABLET PO SCH ×2 (08:09→20:31)
[2017-02-11] MEDS: Lactobacillus 1 EACH CAP.SPRINK PO SCH ×2 (08:09→20:32)
[2017-02-11] MEDS: Loratadine 10 MG TABLET PO SCH (08:09)
[2017-02-11] MEDS: DALIRESP 500MCG PO SCH (08:11)
[2017-02-11] MEDS: Fluticasone Propionate Nasal 50 MCG/SPRAY BOTTLE NS SCH (08:32)
[2017-02-11] MEDS: INCRUSE ELIPTA IH SCH (08:32)
[2017-02-11] MEDS: Budesonide/Formoterol 160/4.5 MDI IH SCH ×2 (08:36→20:50)
[2017-02-11] MEDS: Ketoconazole Shampoo 120 ML BOTTLE TP SCH (08:39)
[2017-02-11] MEDS: Ondansetron ODT 4 MG TAB.RAPDIS SL PRN (10:22)
--- NOTE | 2017-02-11 14:16 | General Surgery Progress Note ---
Date of Encounter: 02/11/17 Time of Encounter: 13:00 - Assessment and Plan (1) Superficial postoperative wound infection Current Visit: Yes Status: Acute Continue with iodoform packing until negative pressure wound dressing is available. White foam proximally and distally in the tunnels at the 12 and 6 o' clock position if possible black foam centrally in the wound. Apply negative pressure wound dressing -125 mmHg pressure 01/11/2017. We will continue negative pressure wound therapy on the central portion of the wound. The nodular area at the base the wound is not fluctuant and I would not open the wound at this time Qualifiers: Encounter type: subsequent encounter Qualified Code(s): T81.4XXD - Infection following a procedure, subsequent encounter Subjective Narrative: The patient continues to recuperate from exploratory laparotomy and small bowel resection for small bowel obstruction. He was given large doses of steroids postoperatively to stabilize his pulmonary condition and this likely contributed to the onset of superficial wound infection. His superficial wound infection was drained and packed initially and now is being treated with negative pressure wound therapy. On physical examination today there is no cellulitis or erythema. He does have a firm nodular area in the lower portion of the incision there is no surrounding erythema. This is not fluctuant. At this point I would not incise and drain this area. I will continue with negative pressure wound therapy. Upon discharge he will be followed in the wound clinic at [place] Objective Vital Signs - Last 8 Hours Temp Pulse Resp BP Pulse Ox 02/11/17 13:54 98 16 151/65 95 02/11/17 11:24 16 95 02/11/17 08:47 15 94 02/11/17 08:37 15 94 02/11/17 07:29 99.3 F 98 24 151/65 97 Intake and Output 02/10/17 02/11/17 02/11/17 23:59 07:59 15:59 Intake Total 100 / 100 50 / 50 480 / 480 Output Total 250 / 250 225 / 225 Balance -150 / -150 -175 / -175 480 / 480 Intake: Oral 100 / 100 50 / 50 480 / 480 Output: Urine 250 / 250 225 / 225 Other: Meal Lunch Percent of Meal Consumed 50% - General physical appearance moderate distress, chronically ill, obese - Respiratory crackles: bilateral, wheezing: bilateral (Decreased breath sounds bilaterally) - Cardiovascular Cardiovascular exam: Present: RRR, distant heart sounds - Abdomen Abdomen: Present: bowel sounds present, soft - Incision Incision: Present: open (Centrally granulated. The bottom portion the incision has a firm nodular area. This is not fluctuant. There is no surrounding erythema. There is no cellulitis.) - Psychiatric oriented to time, oriented to person, oriented to place, speech is normal, memory intact - Labs 02/10/17 04:30 02/10/17 04:30 Consult Discharge Plan - Plan Referrals: Radhames Lewis DO [Primary Care Provider] - 1 week
[2017-02-11] MEDS: ClonazePAM 0.5 MG TABLET PO PRN ×2 (14:44→20:43)
--- NOTE | 2017-02-11 15:27 | Internal Med Progress Note ---
Date of Encounter: 02/11/17 Time of Encounter: 14:20 - Assessment and plan (1) Partial small bowel obstruction Current Visit: No Status: Acute Assessment and plan: February 05. Status post lysis of adhesions and partial small bowel resection with primary anastomosis. Continue wound VAC and other intervention as per Dr. Reed February 11. Seen by Dr. Reed today. Continue present management (2) HTN (hypertension) Current Visit: No Status: Chronic Assessment and plan: February 05. Continue metoprolol, Bumex, and Cozaar. February 2. Blood pressure is borderline low. We will discontinue Cozaar and clonidine. Continue metoprolol and Bumex for now February 11. Continue metoprolol and Bumex Qualifiers: Hypertension type: essential hypertension Qualified Code(s): I10 - Essential (primary) hypertension (3) Obstructive sleep apnea Current Visit: No Status: Chronic Assessment and plan: February 05. Continue CPAP/BiPAP as at home (4) Anemia Current Visit: No Status: Chronic Assessment and plan: February 05. Serum iron and transferrin saturation are low but transferrin is also low with ferritin significantly elevated. Continue to monitor CBC. February 07. Hemoglobin has decreased to 9.1. We will continue to monitor. February 08. Hemoglobin has declined further to 8.6. Will discontinue aspirin for now. February 11. We will recheck labs in a.m. Qualifiers: Anemia type: iron deficiency Iron deficiency anemia type: chronic blood loss Qualified Code(s): D50.0 - Iron deficiency anemia secondary to blood loss (chronic) (5) Edema Current Visit: Yes Status: Chronic Assessment and plan: February 05. Remain off Norvasc and continue Bumex. February 2. Continues to improve off Norvasc and using Bumex February 08. Will order RASHMI hose. We will increase Bumex to 2 mg daily. February 11. Continued RASHMI hose and present dose Bumex. Qualifiers: Edema type: unspecified Qualified Code(s): R60.9 - Edema, unspecified (6) Borderline diabetes Current Visit: No Status: Chronic Assessment and plan: February 05. Hemoglobin A1c was 6.0% on 12/20/2016. He is diet controlled at present. (7) Pneumonia Current Visit: No Status: Acute Assessment and plan: February 05. Will give IV Zosyn and Levaquin with Robitussin and probiotic Veronica 2. Continue IV Zosyn and Levaquin February 08. IV access was lost without success in regaining it on multiple attempts. We will change to oral antibiotics. February 11. We will discontinue antibiotics since he has completed a 7 day course. Qualifiers: Pneumonia type: due to unspecified organism Laterality: left Lung location: lower lobe of lung Qualified Code(s): J18.1 - Lobar pneumonia, unspecified organism (8) Left knee pain Current Visit: Yes Status: Acute Assessment and plan: February 06. We will order uric acid level was other labs in a.m. February 07. Uric acid level was normal at 5.6. D-dimer was significantly elevated at 2094. Proceed with bilateral leg venous Doppler studies February 08. Venous Doppler was negative for DVT. Continue present treatment Qualifiers: Chronicity: acute Qualified Code(s): M25.562 - Pain in left knee (9) Hypomagnesemia Current Visit: Yes Status: Acute Assessment and plan: February 08. We will give magnesium oxide and monitor labs February 11. Continue magnesium oxide. Recheck labs in a.m. (10) Hypokalemia Current Visit: Yes Status: Acute Assessment and plan: February 08. Will increase potassium chloride dose February 11. Recheck labs in a.m. (11) Dysuria Current Visit: Yes Status: Acute Assessment and plan: February 11. Order UA with C&S - Subjective Interval history: February 05. He states his dyspnea has worsened. He has cough productive of green/ yellow sputum February 06. He states his dyspnea is slightly lessened. He complains of some discomfort in his left knee. February 07. His dyspnea is improved. He still has some discomfort in his left thigh. February 08. His dyspnea remains improved. He does not mention pain in his left thigh now. He does note edema has persisted. February 11. His dyspnea has improved. He has dysuria. - Constitutional Vitals: Temp Pulse Resp BP Pulse Ox 99.3 F 98 15 151/65 94 02/11/17 07:29 02/11/17 13:54 02/11/17 15:18 02/11/17 13:54 02/11/17 15:18 Exam: He is sitting in a chair at bedside and appears in no significant distress. His lungs are clear. Extremities show 2-3+ edema of the lower anterior shins and dorsum of the feet. He is not wearing RASHMI hose at this time. His feet are on the floor. I reviewed his medications and lab results. Internal Medicine: Result - Labs CBC & Chem 7: 02/10/17 04:30 02/10/17 04:30 - ABG Interpretation ABG results: PT/INR, D-dimer D-Dimer 2095 ng/mLFEU (0-500) H 02/07/17 05:22 Consult Discharge Plan - Plan Referrals: Radhames Lewis DO [Primary Care Provider] - 1 week
[2017-02-12 02:42] LABS: Bilirubin,Urine Negative (Negative); Blood,Urine Small (Negative); Clarity,Urine Clear (Clear); Color,Urine Yellow (Yellow); Glucose,Urine (UA) Normal (Normal); Ketones,Urine Negative (Negative); Leukocyte Esterase,Urine Negative (Negative); Nitrite,Urine Negative (Negative); Protein,Urine 30 mg/dL (Neg-Trace); Urobilinogen,Urine Normal (Normal)
[2017-02-12 03:48] LABS: RBC,Urine 0-3 per hpf (0-3); Squamous Epithelial Cell,Urine Few per lpf (None-Few)
[2017-02-12 03:49] LABS: Bacteria,Urine None Seen per hpf (None-Few)
[2017-02-12 05:45] LABS: Hematocrit 24.5 % (37.5-50.1); Hemoglobin 7.8 g/dL (12.9-16.9); Lymphocytes # 1.3 K/mcL (0.6-4.6); Mean Corpuscular HGB Conc 31.8 g/dL (31.6-35.5); Mean Corpuscular Hemoglobin 27.8 pg (28.0-33.3); Mean Corpuscular Volume 87.2 fL (83.0-100.0); Mean Platelet Volume 9.6 fL (9.4-12.4); Platelet Count 237 K/mcL (140-400); Red Blood Count 2.81 M/mcL (4.19-5.50); Red Cell Distribution Width 16.6 % (11.5-14.5)
[2017-02-12 06:03] LABS: Alanine Aminotransferase 31 Units/L (0-55); Albumin/Globulin Ratio 0.4 (1.1-2.2); Alkaline Phosphatase 63 Units/L (38-126); Aspartate Amino Transferase 26 Units/L (5-34); BUN/Creatinine Ratio 12 (6-26); Bilirubin,Total 0.2 mg/dL (0.2-1.2); Blood Urea Nitrogen 12 mg/dL (8-26); Calcium 8.2 mg/dL (8.6-10.8); Carbon Dioxide 28 mEq/L (19-29); Chloride 99 mEq/L (98-109); Globulin 4.8 g/dL (2.4-3.5); Glucose 101 mg/dL (70-99); Magnesium 1.4 mg/dL (1.6-2.6); Osmolality,Calculated 286 (280-300); Potassium 3.9 mEq/L (3.5-4.5); Sodium 138 mEq/L (136-145); Total Protein 6.6 g/dL (6.0-8.3); eGFR For African Americans > 60 (> 60); eGFR For Non-African Americans > 60 (> 60)
[2017-02-12 06:14] LABS: Albumin 1.8 g/dL (3.5-5.0)
[2017-02-12 06:23] LABS: Monocytes # 0.9 K/mcL (0.0-1.3); Neutrophils # 6.8 K/mcL (1.6-8.9)
[2017-02-12 06:24] LABS: Anisocytosis 1+ (Not Present)
[2017-02-12] MEDS: *HR* Enoxaparin 40 MG/0.4 ML SYRINGE SQ SCH (06:58)
[2017-02-12] MEDS: Budesonide/Formoterol 160/4.5 MDI IH SCH ×2 (10:33→22:29)
[2017-02-12] MEDS: Ipratropium/Albuterol Neb 3 ML IH PRN ×2 (10:33→22:29)
[2017-02-12] MEDS: INCRUSE ELIPTA IH SCH (10:47)
[2017-02-12] MEDS: Bumetanide 1 MG TABLET PO SCH (11:21)
[2017-02-12] MEDS: Lactobacillus 1 EACH CAP.SPRINK PO SCH ×2 (11:22→22:46)
[2017-02-12] MEDS: Magnesium Oxide 400 MG TABLET PO SCH ×2 (11:22→22:46)
[2017-02-12] MEDS: Loratadine 10 MG TABLET PO SCH (11:23)
[2017-02-12] MEDS: Azelastine 0.1% Nasal Spray 30 ML BOTTLE NS SCH (11:24)
[2017-02-12] MEDS: Fluticasone Propionate Nasal 50 MCG/SPRAY BOTTLE NS SCH (11:24)
[2017-02-12] MEDS: Psyllium 1 PACKET POWD.PACK PO SCH ×2 (11:24→22:46)
[2017-02-12] MEDS: DALIRESP 500MCG PO SCH (11:25)
[2017-02-12] MEDS: Cholecalciferol (D-3) 1,000 UNIT TABLET PO SCH (11:25)
[2017-02-12] MEDS: Ondansetron ODT 4 MG TAB.RAPDIS SL PRN (18:43)
[2017-02-12] MEDS: *HR* OxyCODONE/APAP 10/325 TABLET PO PRN (18:44)
[2017-02-13] MEDS: Azelastine 0.1% Nasal Spray 30 ML BOTTLE NS SCH ×3 (07:14→20:21)
[2017-02-13] MEDS: *HR* Enoxaparin 40 MG/0.4 ML SYRINGE SQ SCH (07:36)
[2017-02-13] MEDS: Ipratropium/Albuterol Neb 3 ML IH PRN ×2 (09:06→21:29)
[2017-02-13] MEDS: Budesonide/Formoterol 160/4.5 MDI IH SCH ×2 (09:07→21:29)
[2017-02-13] MEDS: INCRUSE ELIPTA IH SCH (09:08)
[2017-02-13] MEDS: Bumetanide 1 MG TABLET PO SCH (11:28)
[2017-02-13] MEDS: Lactobacillus 1 EACH CAP.SPRINK PO SCH (11:29)
[2017-02-13] MEDS: Loratadine 10 MG TABLET PO SCH (11:29)
[2017-02-13] MEDS: Cholecalciferol (D-3) 1,000 UNIT TABLET PO SCH (11:30)
[2017-02-13] MEDS: Magnesium Oxide 400 MG TABLET PO SCH ×2 (11:30→20:10)
[2017-02-13] MEDS: DALIRESP 500MCG PO SCH (11:31)
[2017-02-13] MEDS: Fluticasone Propionate Nasal 50 MCG/SPRAY BOTTLE NS SCH (11:33)
[2017-02-13] MEDS: Psyllium 1 PACKET POWD.PACK PO SCH ×2 (11:34→20:11)
[2017-02-13] MEDS: ClonazePAM 0.5 MG TABLET PO PRN (14:09)
--- NOTE | 2017-02-13 16:31 | Internal Med Progress Note ---
Date of Encounter: 02/13/17 Time of Encounter: 16:15 - Assessment and plan (1) Partial small bowel obstruction Current Visit: No Status: Acute Assessment and plan: February 05. Status post lysis of adhesions and partial small bowel resection with primary anastomosis. Continue wound VAC and other intervention as per Dr. Reed February 11. Seen by Dr. Reed today. Continue present management February 13. Continue present management. I will order abdominal/pelvic and chest CT since he has persistent bandemia (2) HTN (hypertension) Current Visit: No Status: Chronic Assessment and plan: February 05. Continue metoprolol, Bumex, and Cozaar. February 06. Blood pressure is borderline low. We will discontinue Cozaar and clonidine. Continue metoprolol and Bumex for now February 11. Continue metoprolol and Bumex Qualifiers: Hypertension type: essential hypertension Qualified Code(s): I10 - Essential (primary) hypertension (3) Obstructive sleep apnea Current Visit: No Status: Chronic Assessment and plan: February 05. Continue CPAP/BiPAP as at home (4) Anemia Current Visit: No Status: Chronic Assessment and plan: February 05. Serum iron and transferrin saturation are low but transferrin is also low with ferritin significantly elevated. Continue to monitor CBC. February 07. Hemoglobin has decreased to 9.1. We will continue to monitor. February 08. Hemoglobin has declined further to 8.6. Will discontinue aspirin for now. February 11. We will recheck labs in a.m. February 13. Hemoglobin continues to decline slowly. Will order CT as per above Qualifiers: Anemia type: iron deficiency Iron deficiency anemia type: chronic blood loss Qualified Code(s): D50.0 - Iron deficiency anemia secondary to blood loss (chronic) (5) Edema Current Visit: Yes Status: Chronic Assessment and plan: February 05. Remain off Norvasc and continue Bumex. February 06. Continues to improve off Norvasc and using Bumex February 08. Will order RASHMI hose. We will increase Bumex to 2 mg daily. February 11. Continued RASHMI hose and present dose Bumex. February 13. Bn peptide remains normal. Continue Bumex and RASHMI hose Qualifiers: Edema type: unspecified Qualified Code(s): R60.9 - Edema, unspecified (6) Borderline diabetes Current Visit: No Status: Chronic Assessment and plan: February 05. Hemoglobin A1c was 6.0% on 12/20/2016. He is diet controlled at present. (7) Pneumonia Current Visit: No Status: Acute Assessment and plan: February 05. Will give IV Zosyn and Levaquin with Robitussin and probiotic February 06. Continue IV Zosyn and Levaquin February 08. IV access was lost without success in regaining it on multiple attempts. We will change to oral antibiotics. February 11. We will discontinue antibiotics since he has completed a 7 day course. February 13. Remain off antibiotics for now. We will do chest CT as per above since he has persistent bandemia Qualifiers: Pneumonia type: due to unspecified organism Laterality: left Lung location: lower lobe of lung Qualified Code(s): J18.1 - Lobar pneumonia, unspecified organism (8) Left knee pain Current Visit: Yes Status: Acute Assessment and plan: February 06. We will order uric acid level was other labs in a.m. February 07. Uric acid level was normal at 5.6. D-dimer was significantly elevated at 2094. Proceed with bilateral leg venous Doppler studies February 08. Venous Doppler was negative for DVT. Continue present treatment February 13. He did not mention leg pain today. Qualifiers: Chronicity: acute Qualified Code(s): M25.562 - Pain in left knee (9) Hypomagnesemia Current Visit: Yes Status: Acute Assessment and plan: February 08. We will give magnesium oxide and monitor labs February 11. Continue magnesium oxide. Recheck labs in a.m. February 13. Improving. Continue magnesium oxide. (10) Hypokalemia Current Visit: Yes Status: Acute Assessment and plan: February 08. Will increase potassium chloride dose February 11. Recheck labs in a.m. February 13. Continue present dose potassium supplement (11) Dysuria Current Visit: Yes Status: Acute Assessment and plan: February 11. Order UA with C&S February 13. UA was unremarkable. He did not mention dysuria today. - Subjective Interval history: February 05. He states his dyspnea has worsened. He has cough productive of green/ yellow sputum February 06. He states his dyspnea is slightly lessened. He complains of some discomfort in his left knee. February 07. His dyspnea is improved. He still has some discomfort in his left thigh. February 08. His dyspnea remains improved. He does not mention pain in his left thigh now. He does note edema has persisted. February 11. His dyspnea has improved. He has dysuria. February 13. States his wound VAC machine malfunctioned yesterday. He still having some nonspecific abdominal fullness and slight discomfort. - Constitutional Vitals: Temp Pulse Resp BP Pulse Ox 98.6 F 105 20 130/74 96 02/13/17 07:00 02/13/17 11:26 02/13/17 09:06 02/13/17 11:26 02/13/17 11:26 Exam: He is sitting in a chair and appears to be fairly comfortable. His abdomen has minimal tenderness to palpation. Extremities show slight improvement in edema. I reviewed his medications and lab results. Internal Medicine: Result - Labs CBC & Chem 7: 02/12/17 04:28 02/12/17 04:28 - ABG Interpretation ABG results: PT/INR, D-dimer D-Dimer 2095 ng/mLFEU (0-500) H 02/07/17 05:22 Consult Discharge Plan - Plan Referrals: Radhames Lewis DO [Primary Care Provider] - 1 week
[2017-02-13] MEDS: *HR* OxyCODONE/APAP 10/325 TABLET PO PRN (17:18)
[2017-02-13] MEDS: Ondansetron ODT 4 MG TAB.RAPDIS SL PRN (17:19)
[2017-02-14 06:27] LABS: Basophils % 0.3 %; Eosinophils # 0.2 K/mcL (0.0-0.6); Hematocrit 23.2 % (37.5-50.1); Hemoglobin 7.4 g/dL (12.9-16.9); Immature Granulocytes % 2.8 % (0-4); Lymphocytes # 1.3 K/mcL (0.6-4.6); Lymphocytes % 17.9 %; Mean Corpuscular HGB Conc 31.9 g/dL (31.6-35.5); Mean Corpuscular Volume 87.9 fL (83.0-100.0); Mean Platelet Volume 10.7 fL (9.4-12.4); Monocytes # 0.6 K/mcL (0.0-1.3); Monocytes % 8.2 %; Neutrophils # 5.2 K/mcL (1.6-8.9); Platelet Count 214 K/mcL (140-400); Red Blood Count 2.64 M/mcL (4.19-5.50); Red Cell Distribution Width 16.4 % (11.5-14.5); Segmented Neutrophils % 68.8 %
[2017-02-14 06:38] LABS: BUN/Creatinine Ratio 14 (6-26); Blood Urea Nitrogen 16 mg/dL (8-26); Calcium 8.3 mg/dL (8.6-10.8); Carbon Dioxide 28 mEq/L (19-29); Chloride 98 mEq/L (98-109); Glucose 98 mg/dL (70-99); Magnesium 1.4 mg/dL (1.6-2.6); Osmolality,Calculated 285 (280-300); Potassium 4.5 mEq/L (3.5-4.5); Sodium 137 mEq/L (136-145); eGFR For African Americans > 60 (> 60); eGFR For Non-African Americans > 60 (> 60)
[2017-02-14] MEDS: *HR* Enoxaparin 40 MG/0.4 ML SYRINGE SQ SCH (07:04)
[2017-02-14] MEDS: Ondansetron ODT 4 MG TAB.RAPDIS SL PRN (07:07)
[2017-02-14] MEDS: *HR* OxyCODONE/APAP 10/325 TABLET PO PRN ×2 (07:07→16:02)
[2017-02-14] MEDS: Ipratropium/Albuterol Neb 3 ML IH PRN ×4 (07:15→22:08)
[2017-02-14] MEDS: Azelastine 0.1% Nasal Spray 30 ML BOTTLE NS SCH ×2 (09:17→21:19)
[2017-02-14] MEDS: Fluticasone Propionate Nasal 50 MCG/SPRAY BOTTLE NS SCH (09:18)
[2017-02-14] MEDS: Psyllium 1 PACKET POWD.PACK PO SCH ×2 (09:18→21:18)
[2017-02-14] MEDS: Bumetanide 1 MG TABLET PO SCH (09:19)
[2017-02-14] MEDS: Ketoconazole Shampoo 120 ML BOTTLE TP SCH (09:20)
[2017-02-14] MEDS: Magnesium Oxide 400 MG TABLET PO SCH ×2 (09:20→21:19)
[2017-02-14] MEDS: Cholecalciferol (D-3) 1,000 UNIT TABLET PO SCH (09:20)
[2017-02-14] MEDS: DALIRESP 500MCG PO SCH (09:20)
[2017-02-14] MEDS: Loratadine 10 MG TABLET PO SCH (09:20)
[2017-02-14] MEDS: INCRUSE ELIPTA IH SCH (09:21)
[2017-02-14] MEDS: ClonazePAM 0.5 MG TABLET PO PRN ×2 (09:23→21:19)
[2017-02-14] MEDS: Budesonide/Formoterol 160/4.5 MDI IH SCH ×2 (10:12→22:08)
[2017-02-15] MEDS: *HR* Enoxaparin 40 MG/0.4 ML SYRINGE SQ SCH (06:42)
[2017-02-15] MEDS: Ipratropium/Albuterol Neb 3 ML IH PRN ×4 (07:44→21:58)
[2017-02-15] MEDS: Budesonide/Formoterol 160/4.5 MDI IH SCH ×2 (07:46→21:58)
[2017-02-15] MEDS: Azelastine 0.1% Nasal Spray 30 ML BOTTLE NS SCH ×2 (08:47→20:57)
[2017-02-15] MEDS: Magnesium Oxide 400 MG TABLET PO SCH ×2 (08:47→20:52)
[2017-02-15] MEDS: Fluticasone Propionate Nasal 50 MCG/SPRAY BOTTLE NS SCH (08:47)
[2017-02-15] MEDS: Psyllium 1 PACKET POWD.PACK PO SCH ×2 (08:47→20:52)
[2017-02-15] MEDS: Bumetanide 1 MG TABLET PO SCH (08:47)
[2017-02-15] MEDS: INCRUSE ELIPTA IH SCH (08:48)
[2017-02-15] MEDS: DALIRESP 500MCG PO SCH (08:48)
[2017-02-15] MEDS: Loratadine 10 MG TABLET PO SCH (08:48)
[2017-02-15] MEDS: Cholecalciferol (D-3) 1,000 UNIT TABLET PO SCH (08:48)
[2017-02-15] MEDS: *HR* OxyCODONE/APAP 10/325 TABLET PO PRN ×2 (13:12→20:50)
--- NOTE | 2017-02-15 15:11 | Internal Med Progress Note ---
Date of Encounter: 02/15/17 Time of Encounter: 15:00 - Assessment and plan (1) Partial small bowel obstruction Current Visit: No Status: Acute Assessment and plan: February 05. Status post lysis of adhesions and partial small bowel resection with primary anastomosis. Continue wound VAC and other intervention as per Dr. Reed February 11. Seen by Dr. Reed today. Continue present management February 13. Continue present management. I will order abdominal/pelvic and chest CT since he has persistent bandemia February 15. Abdominal/pelvis CT scan was generally unremarkable. Continue present management. (2) HTN (hypertension) Current Visit: No Status: Chronic Assessment and plan: February 05. Continue metoprolol, Bumex, and Cozaar. February 06. Blood pressure is borderline low. We will discontinue Cozaar and clonidine. Continue metoprolol and Bumex for now February 11. Continue metoprolol and Bumex Qualifiers: Hypertension type: essential hypertension Qualified Code(s): I10 - Essential (primary) hypertension (3) Obstructive sleep apnea Current Visit: No Status: Chronic Assessment and plan: February 05. Continue CPAP/BiPAP as at home (4) Anemia Current Visit: No Status: Chronic Assessment and plan: February 05. Serum iron and transferrin saturation are low but transferrin is also low with ferritin significantly elevated. Continue to monitor CBC. February 07. Hemoglobin has decreased to 9.1. We will continue to monitor. February 08. Hemoglobin has declined further to 8.6. Will discontinue aspirin for now. February 11. We will recheck labs in a.m. February 13. Hemoglobin continues to decline slowly. Will order CT as per above February 15. We will check CBC and other labs in a.m. Qualifiers: Anemia type: iron deficiency Iron deficiency anemia type: chronic blood loss Qualified Code(s): D50.0 - Iron deficiency anemia secondary to blood loss (chronic) (5) Edema Current Visit: Yes Status: Chronic Assessment and plan: February 05. Remain off Norvasc and continue Bumex. February 06. Continues to improve off Norvasc and using Bumex February 08. Will order RASHMI hose. We will increase Bumex to 2 mg daily. February 11. Continued RASHMI hose and present dose Bumex. February 13. Bn peptide remains normal. Continue Bumex and RASHMI hose Qualifiers: Edema type: unspecified Qualified Code(s): R60.9 - Edema, unspecified (6) Borderline diabetes Current Visit: No Status: Chronic Assessment and plan: February 05. Hemoglobin A1c was 6.0% on 12/20/2016. He is diet controlled at present. (7) Pneumonia Current Visit: No Status: Acute Assessment and plan: February 05. Will give IV Zosyn and Levaquin with Robitussin and probiotic February 06. Continue IV Zosyn and Levaquin February 08. IV access was lost without success in regaining it on multiple attempts. We will change to oral antibiotics. February 11. We will discontinue antibiotics since he has completed a 7 day course. February 13. Remain off antibiotics for now. We will do chest CT as per above since he has persistent bandemia February 15. Chest CT showed equivocal right lower lung infiltrate. He does not clinically have pneumonia at this time. We will recheck CBC in a.m. Qualifiers: Pneumonia type: due to unspecified organism Laterality: left Lung location: lower lobe of lung Qualified Code(s): J18.1 - Lobar pneumonia, unspecified organism (8) Left knee pain Current Visit: Yes Status: Acute Assessment and plan: February 06. We will order uric acid level was other labs in a.m. February 07. Uric acid level was normal at 5.6. D-dimer was significantly elevated at 2094. Proceed with bilateral leg venous Doppler studies February 08. Venous Doppler was negative for DVT. Continue present treatment February 13. He did not mention leg pain today. Qualifiers: Chronicity: acute Qualified Code(s): M25.562 - Pain in left knee (9) Hypomagnesemia Current Visit: Yes Status: Acute Assessment and plan: February 08. We will give magnesium oxide and monitor labs February 11. Continue magnesium oxide. Recheck labs in a.m. February 13. Improving. Continue magnesium oxide. February 15. Recheck labs in a.m. (10) Hypokalemia Current Visit: Yes Status: Acute Assessment and plan: February 08. Will increase potassium chloride dose February 11. Recheck labs in a.m. February 13. Continue present dose potassium supplement February 15. Recheck labs in a.m. (11) Dysuria Current Visit: Yes Status: Acute Assessment and plan: February 11. Order UA with C&S February 13. UA was unremarkable. He did not mention dysuria today. - Subjective Interval history: February 05. He states his dyspnea has worsened. He has cough productive of green/ yellow sputum February 06. He states his dyspnea is slightly lessened. He complains of some discomfort in his left knee. February 07. His dyspnea is improved. He still has some discomfort in his left thigh. February 08. His dyspnea remains improved. He does not mention pain in his left thigh now. He does note edema has persisted. February 11. His dyspnea has improved. He has dysuria. February 13. States his wound VAC machine malfunctioned yesterday. He still having some nonspecific abdominal fullness and slight discomfort. February 15. He has no new complaints except he feels occasionally like his left side is weaker than his right. He also reports occasional sporadic shaking of his left arm and leg. He does not have altered consciousness during these episodes. - Constitutional Vitals: Temp Pulse Resp BP Pulse Ox 98.8 F 103 18 117/72 96 02/14/17 18:26 02/15/17 09:00 02/15/17 13:32 02/15/17 09:00 02/15/17 13:32 Exam: He is resting comfortably in bed. There is no pronator drift on outstretched arms. He is able to lift both legs off the bed. Ankle and elbow flexion and extension strength against resistance is symmetric. I reviewed his medications and lab results. His edema is not significantly changed. Internal Medicine: Result - Labs CBC & Chem 7: 02/14/17 04:25 02/14/17 04:25 - ABG Interpretation ABG results: PT/INR, D-dimer D-Dimer 2095 ng/mLFEU (0-500) H 02/07/17 05:22 - VTE Documentation of Mechanical Device: Graduated compression elastic hosiery Consult Discharge Plan - Plan Referrals: Radhames Lewis DO [Primary Care Provider] - 1 week
[2017-02-15] MEDS: ClonazePAM 0.5 MG TABLET PO PRN (20:52)
[2017-02-16] MEDS: *HR* Enoxaparin 40 MG/0.4 ML SYRINGE SQ SCH (05:36)
[2017-02-16] MEDS: *HR* OxyCODONE/APAP 10/325 TABLET PO PRN ×3 (05:54→20:42)
[2017-02-16] MEDS: Ipratropium/Albuterol Neb 3 ML IH PRN ×4 (06:08→21:28)
[2017-02-16 06:29] LABS: Basophils % 0.3 %; Eosinophils # 0.2 K/mcL (0.0-0.6); Eosinophils % 2.8 %; Hematocrit 23.8 % (37.5-50.1); Hemoglobin 7.6 g/dL (12.9-16.9); Lymphocytes # 1.4 K/mcL (0.6-4.6); Mean Corpuscular HGB Conc 31.9 g/dL (31.6-35.5); Mean Corpuscular Hemoglobin 27.9 pg (28.0-33.3); Mean Corpuscular Volume 87.5 fL (83.0-100.0); Mean Platelet Volume 9.8 fL (9.4-12.4); Monocytes # 0.6 K/mcL (0.0-1.3); Monocytes % 8.3 %; Neutrophils # 5.2 K/mcL (1.6-8.9); Platelet Count 286 K/mcL (140-400); Red Blood Count 2.72 M/mcL (4.19-5.50); Red Cell Distribution Width 16.4 % (11.5-14.5); Segmented Neutrophils % 68.6 %
[2017-02-16 06:47] LABS: BUN/Creatinine Ratio 15 (6-26); Blood Urea Nitrogen 17 mg/dL (8-26); Calcium 8.6 mg/dL (8.6-10.8); Carbon Dioxide 29 mEq/L (19-29); Chloride 101 mEq/L (98-109); Glucose 98 mg/dL (70-99); Osmolality,Calculated 290 (280-300); Potassium 4.7 mEq/L (3.5-4.5); Sodium 139 mEq/L (136-145); eGFR For African Americans > 60 (> 60); eGFR For Non-African Americans > 60 (> 60)
[2017-02-16] MEDS: DALIRESP 500MCG PO SCH (08:35)
[2017-02-16] MEDS: Cholecalciferol (D-3) 1,000 UNIT TABLET PO SCH (08:37)
[2017-02-16] MEDS: ClonazePAM 0.5 MG TABLET PO PRN ×2 (08:37→20:43)
[2017-02-16] MEDS: Loratadine 10 MG TABLET PO SCH (08:39)
[2017-02-16] MEDS: Magnesium Oxide 400 MG TABLET PO SCH ×2 (08:39→20:44)
[2017-02-16] MEDS: Bumetanide 1 MG TABLET PO SCH (08:40)
[2017-02-16] MEDS: Psyllium 1 PACKET POWD.PACK PO SCH ×2 (08:42→20:45)
[2017-02-16] MEDS: Azelastine 0.1% Nasal Spray 30 ML BOTTLE NS SCH ×2 (08:48→20:44)
[2017-02-16] MEDS: Fluticasone Propionate Nasal 50 MCG/SPRAY BOTTLE NS SCH (08:48)
[2017-02-16] MEDS: Ketoconazole Shampoo 120 ML BOTTLE TP SCH (08:50)
[2017-02-16] MEDS: INCRUSE ELIPTA IH SCH (08:50)
[2017-02-16] MEDS: Budesonide/Formoterol 160/4.5 MDI IH SCH ×2 (11:01→21:28)
[2017-02-16] MEDS: Ondansetron ODT 4 MG TAB.RAPDIS SL PRN ×2 (12:00→20:41)
--- NOTE | 2017-02-16 12:26 | Internal Med Progress Note ---
Date of Encounter: 02/16/17 Time of Encounter: 12:15 - Assessment and plan (1) Partial small bowel obstruction Current Visit: No Status: Acute Assessment and plan: February 05. Status post lysis of adhesions and partial small bowel resection with primary anastomosis. Continue wound VAC and other intervention as per Dr. Reed February 11. Seen by Dr. Reed today. Continue present management February 13. Continue present management. I will order abdominal/pelvic and chest CT since he has persistent bandemia February 15. Abdominal/pelvis CT scan was generally unremarkable. Continue present management. February 16. Continue wound VAC. WBC remains normal with no bandemia (2) HTN (hypertension) Current Visit: No Status: Chronic Assessment and plan: February 05. Continue metoprolol, Bumex, and Cozaar. February 06. Blood pressure is borderline low. We will discontinue Cozaar and clonidine. Continue metoprolol and Bumex for now February 11. Continue metoprolol and Bumex Qualifiers: Hypertension type: essential hypertension Qualified Code(s): I10 - Essential (primary) hypertension (3) Obstructive sleep apnea Current Visit: No Status: Chronic Assessment and plan: February 05. Continue CPAP/BiPAP as at home (4) Anemia Current Visit: No Status: Chronic Assessment and plan: February 05. Serum iron and transferrin saturation are low but transferrin is also low with ferritin significantly elevated. Continue to monitor CBC. February 07. Hemoglobin has decreased to 9.1. We will continue to monitor. February 08. Hemoglobin has declined further to 8.6. Will discontinue aspirin for now. February 11. We will recheck labs in a.m. February 13. Hemoglobin continues to decline slowly. Will order CT as per above February 15. We will check CBC and other labs in a.m. February 16. Hemoglobin has improved to 7.6. Continue present management. Qualifiers: Anemia type: iron deficiency Iron deficiency anemia type: chronic blood loss Qualified Code(s): D50.0 - Iron deficiency anemia secondary to blood loss (chronic) (5) Edema Current Visit: Yes Status: Chronic Assessment and plan: February 05. Remain off Norvasc and continue Bumex. February 2. Continues to improve off Norvasc and using Bumex February 08. Will order RASHMI hose. We will increase Bumex to 2 mg daily. February 11. Continued RASHMI hose and present dose Bumex. February 13. Bn peptide remains normal. Continue Bumex and RASHMI hose Qualifiers: Edema type: unspecified Qualified Code(s): R60.9 - Edema, unspecified (6) Borderline diabetes Current Visit: No Status: Chronic Assessment and plan: February 05. Hemoglobin A1c was 6.0% on 12/20/2016. He is diet controlled at present. (7) Pneumonia Current Visit: No Status: Acute Assessment and plan: February 05. Will give IV Zosyn and Levaquin with Robitussin and probiotic February 06. Continue IV Zosyn and Levaquin February 08. IV access was lost without success in regaining it on multiple attempts. We will change to oral antibiotics. February 11. We will discontinue antibiotics since he has completed a 7 day course. February 13. Remain off antibiotics for now. We will do chest CT as per above since he has persistent bandemia February 15. Chest CT showed equivocal right lower lung infiltrate. He does not clinically have pneumonia at this time. We will recheck CBC in a.m. February 16. Remains resolved clinically. Will not workup or treat further. Qualifiers: Pneumonia type: due to unspecified organism Laterality: left Lung location: lower lobe of lung Qualified Code(s): J18.1 - Lobar pneumonia, unspecified organism (8) Left knee pain Current Visit: Yes Status: Acute Assessment and plan: February 06. We will order uric acid level was other labs in a.m. February 07. Uric acid level was normal at 5.6. D-dimer was significantly elevated at 2095. Proceed with bilateral leg venous Doppler studies February 08. Venous Doppler was negative for DVT. Continue present treatment February 13. He did not mention leg pain today. Qualifiers: Chronicity: acute Qualified Code(s): M25.562 - Pain in left knee (9) Hypomagnesemia Current Visit: Yes Status: Acute Assessment and plan: February 08. We will give magnesium oxide and monitor labs February 11. Continue magnesium oxide. Recheck labs in a.m. February 13. Improving. Continue magnesium oxide. February 15. Recheck labs in a.m. (10) Hypokalemia Current Visit: Yes Status: Acute Assessment and plan: February 08. Will increase potassium chloride dose February 11. Recheck labs in a.m. February 13. Continue present dose potassium supplement Veronica 11. Recheck labs in a.m. February 16. Potassium has risen to 4.7. We will decrease potassium chloride dose to 20 meq twice a day. (11) Dysuria Current Visit: Yes Status: Acute Assessment and plan: February 11. Order UA with C&S February 13. UA was unremarkable. He did not mention dysuria today. - Subjective Interval history: February 05. He states his dyspnea has worsened. He has cough productive of green/ yellow sputum February 06. He states his dyspnea is slightly lessened. He complains of some discomfort in his left knee. February 07. His dyspnea is improved. He still has some discomfort in his left thigh. February 08. His dyspnea remains improved. He does not mention pain in his left thigh now. He does note edema has persisted. February 11. His dyspnea has improved. He has dysuria. February 13. States his wound VAC machine malfunctioned yesterday. He still having some nonspecific abdominal fullness and slight discomfort. February 15. He has no new complaints except he feels occasionally like his left side is weaker than his right. He also reports occasional sporadic shaking of his left arm and leg. He does not have altered consciousness during these episodes. February 16. He has no new complaints. He still complains he shakes when he attempts to hold a cup of coffee. - Constitutional Vitals: Temp Pulse Resp BP Pulse Ox 98.5 F 99 16 113/70 99 02/16/17 07:17 02/16/17 07:17 02/16/17 10:58 02/16/17 07:02/16/17 10:58 Exam: He is sitting in a chair resting comfortably. He is wearing RASHMI hose. He has trace to 1+ edema the lower anterior shins. He has mild physiologic tremor of his hands. There is no Parkinsonian type tremor. Finger to nose is intact bilaterally. Reviewed his medications and lab results. Internal Medicine: Result - Labs CBC & Chem 7: 02/16/17 06:10 02/16/17 04:00 Labs: Short CBC 02/16/17 Range/Units 06:10 WBC 7.6 (4.3-11.1) K/mcL Hgb 7.6 L (12.9-16.9) g/dL Hct 23.8 L (37.5-50.1) % Plt Count 286 (140-400) K/mcL Neutrophils # 5.2 (1.6-8.9) K/mcL BMP 02/16/17 04:00 Sodium 139 Potassium 4.7 H Chloride 101 Carbon Dioxide 29 BUN 17 Creatinine 1.13 Glucose 98 Calcium 8.6 - ABG Interpretation ABG results: PT/INR, D-dimer D-Dimer 2095 ng/mLFEU (0-500) H 02/07/17 05:22 - VTE Documentation of Mechanical Device: Graduated compression elastic hosiery Consult Discharge Plan - Plan Referrals: Radhames Lewis DO [Primary Care Provider] - 1 week
[2017-02-17] MEDS: *HR* OxyCODONE/APAP 10/325 TABLET PO PRN ×2 (07:51→23:31)
[2017-02-17] MEDS: Ondansetron ODT 4 MG TAB.RAPDIS SL PRN ×3 (07:52→23:30)
[2017-02-17] MEDS: Psyllium 1 PACKET POWD.PACK PO SCH ×2 (07:52→23:32)
[2017-02-17] MEDS: Bumetanide 1 MG TABLET PO SCH (07:55)
[2017-02-17] MEDS: Cholecalciferol (D-3) 1,000 UNIT TABLET PO SCH (07:56)
[2017-02-17] MEDS: Magnesium Oxide 400 MG TABLET PO SCH ×2 (07:56→23:30)
[2017-02-17] MEDS: *HR* Enoxaparin 40 MG/0.4 ML SYRINGE SQ SCH (07:57)
[2017-02-17] MEDS: Ipratropium/Albuterol Neb 3 ML IH PRN ×3 (07:57→22:05)
[2017-02-17] MEDS: Loratadine 10 MG TABLET PO SCH (07:57)
[2017-02-17] MEDS: DALIRESP 500MCG PO SCH (08:18)
[2017-02-17] MEDS: INCRUSE ELIPTA IH SCH (08:19)
[2017-02-17] MEDS: Azelastine 0.1% Nasal Spray 30 ML BOTTLE NS SCH ×2 (08:21→23:29)
[2017-02-17] MEDS: Fluticasone Propionate Nasal 50 MCG/SPRAY BOTTLE NS SCH (08:21)
[2017-02-17] MEDS: ClonazePAM 0.5 MG TABLET PO PRN ×2 (09:52→23:30)
[2017-02-17] MEDS: Budesonide/Formoterol 160/4.5 MDI IH SCH ×2 (10:16→22:05)
[2017-02-18] MEDS: *HR* Enoxaparin 40 MG/0.4 ML SYRINGE SQ SCH (06:49)
[2017-02-18] MEDS: Ondansetron ODT 4 MG TAB.RAPDIS SL PRN ×3 (09:30→22:01)
[2017-02-18] MEDS: Magnesium Oxide 400 MG TABLET PO SCH ×2 (09:30→22:01)
[2017-02-18] MEDS: ClonazePAM 0.5 MG TABLET PO PRN ×2 (09:31→22:03)
[2017-02-18] MEDS: Azelastine 0.1% Nasal Spray 30 ML BOTTLE NS SCH ×2 (09:31→21:57)
[2017-02-18] MEDS: *HR* OxyCODONE/APAP 10/325 TABLET PO PRN ×3 (09:31→22:02)
[2017-02-18] MEDS: Cholecalciferol (D-3) 1,000 UNIT TABLET PO SCH (09:32)
[2017-02-18] MEDS: Loratadine 10 MG TABLET PO SCH (09:32)
[2017-02-18] MEDS: Fluticasone Propionate Nasal 50 MCG/SPRAY BOTTLE NS SCH (09:32)
[2017-02-18] MEDS: DALIRESP 500MCG PO SCH (09:33)
[2017-02-18] MEDS: Bumetanide 1 MG TABLET PO SCH (09:33)
[2017-02-18] MEDS: Ketoconazole Shampoo 120 ML BOTTLE TP SCH (09:33)
[2017-02-18] MEDS: Ipratropium/Albuterol Neb 3 ML IH PRN ×3 (09:35→22:46)
[2017-02-18] MEDS: Budesonide/Formoterol 160/4.5 MDI IH SCH ×2 (09:36→22:46)
[2017-02-18] MEDS: Psyllium 1 PACKET POWD.PACK PO SCH ×2 (09:52→21:59)
[2017-02-18] MEDS: INCRUSE ELIPTA IH SCH (10:01)
--- NOTE | 2017-02-18 14:23 | Internal Med Progress Note ---
Date of Encounter: 02/18/17 Time of Encounter: 14:15 - Assessment and plan (1) Partial small bowel obstruction Current Visit: No Status: Acute Assessment and plan: February 05. Status post lysis of adhesions and partial small bowel resection with primary anastomosis. Continue wound VAC and other intervention as per Dr. Reed February 11. Seen by Dr. Reed today. Continue present management February 13. Continue present management. I will order abdominal/pelvic and chest CT since he has persistent bandemia February 15. Abdominal/pelvis CT scan was generally unremarkable. Continue present management. February 16. Continue wound VAC. WBC remains normal with no bandemia (2) HTN (hypertension) Current Visit: No Status: Chronic Assessment and plan: February 05. Continue metoprolol, Bumex, and Cozaar. February 06. Blood pressure is borderline low. We will discontinue Cozaar and clonidine. Continue metoprolol and Bumex for now February 11. Continue metoprolol and Bumex Qualifiers: Hypertension type: essential hypertension Qualified Code(s): I10 - Essential (primary) hypertension (3) Obstructive sleep apnea Current Visit: No Status: Chronic Assessment and plan: February 05. Continue CPAP/BiPAP as at home (4) Anemia Current Visit: No Status: Chronic Assessment and plan: February 05. Serum iron and transferrin saturation are low but transferrin is also low with ferritin significantly elevated. Continue to monitor CBC. February 07. Hemoglobin has decreased to 9.1. We will continue to monitor. February 08. Hemoglobin has declined further to 8.6. Will discontinue aspirin for now. February 11. We will recheck labs in a.m. February 13. Hemoglobin continues to decline slowly. Will order CT as per above February 15. We will check CBC and other labs in a.m. February 16. Hemoglobin has improved to 7.6. Continue present management. February 18. Recheck labs in a.m. Qualifiers: Anemia type: iron deficiency Iron deficiency anemia type: chronic blood loss Qualified Code(s): D50.0 - Iron deficiency anemia secondary to blood loss (chronic) (5) Edema Current Visit: Yes Status: Chronic Assessment and plan: February 05. Remain off Norvasc and continue Bumex. February 2. Continues to improve off Norvasc and using Bumex February 08. Will order RASHMI hose. We will increase Bumex to 2 mg daily. February 11. Continued RASHMI hose and present dose Bumex. February 13. Bn peptide remains normal. Continue Bumex and RASHMI hose Qualifiers: Edema type: unspecified Qualified Code(s): R60.9 - Edema, unspecified (6) Borderline diabetes Current Visit: No Status: Chronic Assessment and plan: February 05. Hemoglobin A1c was 6.0% on 12/20/2016. He is diet controlled at present. (7) Pneumonia Current Visit: No Status: Acute Assessment and plan: February 05. Will give IV Zosyn and Levaquin with Robitussin and probiotic February 06. Continue IV Zosyn and Levaquin February 08. IV access was lost without success in regaining it on multiple attempts. We will change to oral antibiotics. February 11. We will discontinue antibiotics since he has completed a 7 day course. February 13. Remain off antibiotics for now. We will do chest CT as per above since he has persistent bandemia February 15. Chest CT showed equivocal right lower lung infiltrate. He does not clinically have pneumonia at this time. We will recheck CBC in a.m. February 16. Remains resolved clinically. Will not workup or treat further. Qualifiers: Pneumonia type: due to unspecified organism Laterality: left Lung location: lower lobe of lung Qualified Code(s): J18.1 - Lobar pneumonia, unspecified organism (8) Hypomagnesemia Current Visit: Yes Status: Acute Assessment and plan: February 08. We will give magnesium oxide and monitor labs February 11. Continue magnesium oxide. Recheck labs in a.m. February 13. Improving. Continue magnesium oxide. February 15. Recheck labs in a.m. February 18. Recheck labs in a.m. (9) Hypokalemia Current Visit: Yes Status: Acute Assessment and plan: February 08. Will increase potassium chloride dose February 11. Recheck labs in a.m. February 13. Continue present dose potassium supplement February 15. Recheck labs in a.m. February 16. Potassium has risen to 4.7. We will decrease potassium chloride dose to 20 meq twice a day. February 18. Recheck labs in a.m. - Subjective Interval history: February 05. He states his dyspnea has worsened. He has cough productive of green/ yellow sputum February 2. He states his dyspnea is slightly lessened. He complains of some discomfort in his left knee. February 07. His dyspnea is improved. He still has some discomfort in his left thigh. February 08. His dyspnea remains improved. He does not mention pain in his left thigh now. He does note edema has persisted. February 11. His dyspnea has improved. He has dysuria. February 13. States his wound VAC machine malfunctioned yesterday. He still having some nonspecific abdominal fullness and slight discomfort. February 15. He has no new complaints except he feels occasionally like his left side is weaker than his right. He also reports occasional sporadic shaking of his left arm and leg. He does not have altered consciousness during these episodes. February 16. He has no new complaints. He still complains he shakes when he attempts to hold a cup of coffee. February 18. He reports green/yellow mucus from coughing. He had vomiting yesterday after eating but that has lessened today. He states Dr. Reed evaluated him this morning and seemed pleased with his wound progress - Constitutional Vitals: Temp Pulse Resp BP Pulse Ox 99.4 F 87 18 122/79 98 02/18/17 08:30 02/18/17 13:36 02/18/17 13:36 02/18/17 13:36 02/18/17 13:36 Exam: He is in no acute distress. His extremities show slightly less edema. I reviewed his medications and lab results. Internal Medicine: Result - Labs CBC & Chem 7: 02/16/17 06:10 02/16/17 04:00 - ABG Interpretation ABG results: PT/INR, D-dimer D-Dimer 2095 ng/mLFEU (0-500) H 02/07/17 05:22 - VTE Documentation of Mechanical Device: Graduated compression elastic hosiery Consult Discharge Plan - Plan Referrals: Radhames Lewis DO [Primary Care Provider] - 1 week
[2017-02-19 06:01] LABS: Basophils % 0.4 %; Eosinophils # 0.4 K/mcL (0.0-0.6); Eosinophils % 5.5 %; Hematocrit 24.8 % (37.5-50.1); Hemoglobin 7.5 g/dL (12.9-16.9); Immature Granulocytes % 2.5 % (0-4); Lymphocytes # 1.4 K/mcL (0.6-4.6); Lymphocytes % 21.3 %; Mean Corpuscular HGB Conc 30.2 g/dL (31.6-35.5); Mean Corpuscular Hemoglobin 27.3 pg (28.0-33.3); Mean Corpuscular Volume 90.2 fL (83.0-100.0); Mean Platelet Volume 10.1 fL (9.4-12.4); Monocytes # 0.7 K/mcL (0.0-1.3); Monocytes % 10.5 %; Platelet Count 385 K/mcL (140-400); Red Blood Count 2.75 M/mcL (4.19-5.50); Red Cell Distribution Width 16.8 % (11.5-14.5); Segmented Neutrophils % 59.8 %
[2017-02-19 06:22] LABS: BUN/Creatinine Ratio 16 (6-26); Blood Urea Nitrogen 22 mg/dL (8-26); Calcium 8.6 mg/dL (8.6-10.8); Carbon Dioxide 29 mEq/L (19-29); Chloride 99 mEq/L (98-109); Glucose 95 mg/dL (70-99); Magnesium 1.6 mg/dL (1.6-2.6); Osmolality,Calculated 295 (280-300); Potassium 4.3 mEq/L (3.5-4.5); Sodium 141 mEq/L (136-145); eGFR For African Americans > 60 (> 60); eGFR For Non-African Americans 51 (> 60)
[2017-02-19] MEDS: Ondansetron ODT 4 MG TAB.RAPDIS SL PRN ×4 (06:28→22:06)
[2017-02-19] MEDS: *HR* Enoxaparin 40 MG/0.4 ML SYRINGE SQ SCH (06:28)
[2017-02-19] MEDS: *HR* OxyCODONE/APAP 10/325 TABLET PO PRN ×3 (06:29→22:09)
[2017-02-19] MEDS: Ipratropium/Albuterol Neb 3 ML IH PRN ×4 (08:03→20:51)
[2017-02-19] MEDS: Budesonide/Formoterol 160/4.5 MDI IH SCH ×2 (08:05→21:01)
[2017-02-19] MEDS: Psyllium 1 PACKET POWD.PACK PO SCH ×2 (09:13→22:05)
[2017-02-19] MEDS: Magnesium Oxide 400 MG TABLET PO SCH ×2 (09:13→22:07)
[2017-02-19] MEDS: Cholecalciferol (D-3) 1,000 UNIT TABLET PO SCH (09:13)
[2017-02-19] MEDS: Loratadine 10 MG TABLET PO SCH (09:14)
[2017-02-19] MEDS: Bumetanide 1 MG TABLET PO SCH (09:14)
[2017-02-19] MEDS: Fluticasone Propionate Nasal 50 MCG/SPRAY BOTTLE NS SCH (09:15)
[2017-02-19] MEDS: Azelastine 0.1% Nasal Spray 30 ML BOTTLE NS SCH ×2 (09:15→22:04)
[2017-02-19] MEDS: ClonazePAM 0.5 MG TABLET PO PRN ×2 (09:19→22:08)
[2017-02-19] MEDS: DALIRESP 500MCG PO SCH (09:29)
[2017-02-19] MEDS: INCRUSE ELIPTA IH SCH (11:12)
[2017-02-20] MEDS: Ipratropium/Albuterol Neb 3 ML IH PRN ×4 (08:01→22:27)
[2017-02-20] MEDS: Budesonide/Formoterol 160/4.5 MDI IH SCH ×2 (08:03→22:27)
[2017-02-20] MEDS: Azelastine 0.1% Nasal Spray 30 ML BOTTLE NS SCH ×2 (10:00→21:25)
[2017-02-20] MEDS: *HR* Enoxaparin 40 MG/0.4 ML SYRINGE SQ SCH (10:01)
[2017-02-20] MEDS: Fluticasone Propionate Nasal 50 MCG/SPRAY BOTTLE NS SCH (10:01)
[2017-02-20] MEDS: Psyllium 1 PACKET POWD.PACK PO SCH ×2 (10:02→21:27)
[2017-02-20] MEDS: Bumetanide 1 MG TABLET PO SCH (10:02)
[2017-02-20] MEDS: Loratadine 10 MG TABLET PO SCH (10:02)
[2017-02-20] MEDS: Magnesium Oxide 400 MG TABLET PO SCH ×2 (10:02→21:26)
[2017-02-20] MEDS: Cholecalciferol (D-3) 1,000 UNIT TABLET PO SCH (10:03)
[2017-02-20] MEDS: Ondansetron ODT 4 MG TAB.RAPDIS SL PRN ×2 (10:03→16:37)
[2017-02-20] MEDS: *HR* OxyCODONE/APAP 10/325 TABLET PO PRN ×2 (10:03→16:37)
[2017-02-20] MEDS: INCRUSE ELIPTA IH SCH (10:04)
[2017-02-20] MEDS: DALIRESP 500MCG PO SCH (10:04)
--- NOTE | 2017-02-20 15:41 | Internal Med Progress Note ---
Date of Encounter: 02/20/17 Time of Encounter: 15:30 - Assessment and plan (1) Partial small bowel obstruction Current Visit: No Status: Acute Assessment and plan: February 05. Status post lysis of adhesions and partial small bowel resection with primary anastomosis. Continue wound VAC and other intervention as per Dr. Reed February 11. Seen by Dr. Reed today. Continue present management February 13. Continue present management. I will order abdominal/pelvic and chest CT since he has persistent bandemia February 15. Abdominal/pelvis CT scan was generally unremarkable. Continue present management. February 16. Continue wound VAC. WBC remains normal with no bandemia (2) HTN (hypertension) Current Visit: No Status: Chronic Assessment and plan: February 05. Continue metoprolol, Bumex, and Cozaar. February 06. Blood pressure is borderline low. We will discontinue Cozaar and clonidine. Continue metoprolol and Bumex for now February 11. Continue metoprolol and Bumex Qualifiers: Hypertension type: essential hypertension Qualified Code(s): I10 - Essential (primary) hypertension (3) Obstructive sleep apnea Current Visit: No Status: Chronic Assessment and plan: February 05. Continue CPAP/BiPAP as at home (4) Anemia Current Visit: No Status: Chronic Assessment and plan: February 05. Serum iron and transferrin saturation are low but transferrin is also low with ferritin significantly elevated. Continue to monitor CBC. February 07. Hemoglobin has decreased to 9.1. We will continue to monitor. February 08. Hemoglobin has declined further to 8.6. Will discontinue aspirin for now. February 11. We will recheck labs in a.m. February 13. Hemoglobin continues to decline slowly. Will order CT as per above February 15. We will check CBC and other labs in a.m. February 16. Hemoglobin has improved to 7.6. Continue present management. February 18. Recheck labs in a.m. February 20. Hemoglobin was stable at 7.5 yesterday. We will recheck in a.m. Qualifiers: Anemia type: iron deficiency Iron deficiency anemia type: chronic blood loss Qualified Code(s): D50.0 - Iron deficiency anemia secondary to blood loss (chronic) (5) Edema Current Visit: Yes Status: Chronic Assessment and plan: February 05. Remain off Norvasc and continue Bumex. February 2. Continues to improve off Norvasc and using Bumex Veronica 4. Will order RASHMI hose. We will increase Bumex to 2 mg daily. February 11. Continued RASHMI hose and present dose Bumex. February 13. Bn peptide remains normal. Continue Bumex and RASHMI hose February 20. I strongly encouraged him to wear RASHMI hose. Continue Bumex at present dose. Qualifiers: Edema type: unspecified Qualified Code(s): R60.9 - Edema, unspecified (6) Borderline diabetes Current Visit: No Status: Chronic Assessment and plan: February 05. Hemoglobin A1c was 6.0% on 12/20/2016. He is diet controlled at present. (7) Pneumonia Current Visit: No Status: Acute Assessment and plan: February 05. Will give IV Zosyn and Levaquin with Robitussin and probiotic February 06. Continue IV Zosyn and Levaquin February 08. IV access was lost without success in regaining it on multiple attempts. We will change to oral antibiotics. February 11. We will discontinue antibiotics since he has completed a 7 day course. February 13. Remain off antibiotics for now. We will do chest CT as per above since he has persistent bandemia February 15. Chest CT showed equivocal right lower lung infiltrate. He does not clinically have pneumonia at this time. We will recheck CBC in a.m. February 16. Remains resolved clinically. Will not workup or treat further. February 20. We will check CBC and chest x-ray since he complains of productive cough. Qualifiers: Pneumonia type: due to unspecified organism Laterality: left Lung location: lower lobe of lung Qualified Code(s): J18.1 - Lobar pneumonia, unspecified organism (8) Hypomagnesemia Current Visit: Yes Status: Acute Assessment and plan: February 08. We will give magnesium oxide and monitor labs February 11. Continue magnesium oxide. Recheck labs in a.m. February 13. Improving. Continue magnesium oxide. February 15. Recheck labs in a.m. February 18. Recheck labs in a.m. (9) Hypokalemia Current Visit: Yes Status: Acute Assessment and plan: February 08. Will increase potassium chloride dose February 11. Recheck labs in a.m. February 13. Continue present dose potassium supplement February 15. Recheck labs in a.m. February 16. Potassium has risen to 4.7. We will decrease potassium chloride dose to 20 meq twice a day. February 18. Recheck labs in a.m. February 20. Recheck labs in a.m. - Subjective Interval history: February 05. He states his dyspnea has worsened. He has cough productive of green/ yellow sputum February 06. He states his dyspnea is slightly lessened. He complains of some discomfort in his left knee. February 07. His dyspnea is improved. He still has some discomfort in his left thigh. February 08. His dyspnea remains improved. He does not mention pain in his left thigh now. He does note edema has persisted. February 11. His dyspnea has improved. He has dysuria. February 13. States his wound VAC machine malfunctioned yesterday. He still having some nonspecific abdominal fullness and slight discomfort. February 15. He has no new complaints except he feels occasionally like his left side is weaker than his right. He also reports occasional sporadic shaking of his left arm and leg. He does not have altered consciousness during these episodes. February 16. He has no new complaints. He still complains he shakes when he attempts to hold a cup of coffee. February 18. He reports green/yellow mucus from coughing. He had vomiting yesterday after eating but that has lessened today. He states Dr. Reed evaluated him this morning and seemed pleased with his wound progress February 20. He reports ongoing yellow mucus with coughing. He has had no vomiting but states he does have some epigastric discomfort. - Constitutional Vitals: Temp Pulse Resp BP Pulse Ox 98.7 F 95 18 147/56 90 02/20/17 07:00 02/20/17 07:00 02/20/17 12:19 02/20/17 07:00 02/20/17 12:19 Exam: He is sitting in a chair and appears to be in minimal distress. His extremity edema is slightly improved. He is not wearing RASHMI hose at this time. His lungs show no wheezes crackles or egophony. I reviewed his medications and lab results. Internal Medicine: Result - Labs CBC & Chem 7: 02/19/17 04:20 02/19/17 04:20 - ABG Interpretation ABG results: PT/INR, D-dimer D-Dimer 2095 ng/mLFEU (0-500) H 02/07/17 05:22 - VTE Documentation of Mechanical Device: Graduated compression elastic hosiery Consult Discharge Plan - Plan Referrals: Radhames Lewis DO [Primary Care Provider] - 1 week
[2017-02-20] MEDS: ClonazePAM 0.5 MG TABLET PO PRN (21:30)
[2017-02-21 05:24] LABS: Basophils % 0.6 %; Eosinophils # 0.5 K/mcL (0.0-0.6); Eosinophils % 6.6 %; Hematocrit 23.7 % (37.5-50.1); Hemoglobin 7.4 g/dL (12.9-16.9); Lymphocytes # 1.6 K/mcL (0.6-4.6); Lymphocytes % 23.9 %; Mean Corpuscular HGB Conc 31.2 g/dL (31.6-35.5); Mean Corpuscular Hemoglobin 27.6 pg (28.0-33.3); Mean Corpuscular Volume 88.4 fL (83.0-100.0); Mean Platelet Volume 9.2 fL (9.4-12.4); Monocytes # 0.7 K/mcL (0.0-1.3); Monocytes % 10.1 %; Neutrophils # 3.9 K/mcL (1.6-8.9); Platelet Count 399 K/mcL (140-400); Red Blood Count 2.68 M/mcL (4.19-5.50); Red Cell Distribution Width 16.4 % (11.5-14.5); Segmented Neutrophils % 56.8 %
[2017-02-21 05:39] LABS: BUN/Creatinine Ratio 15 (6-26); Blood Urea Nitrogen 21 mg/dL (8-26); Calcium 8.7 mg/dL (8.6-10.8); Carbon Dioxide 27 mEq/L (19-29); Chloride 101 mEq/L (98-109); Glucose 95 mg/dL (70-99); Osmolality,Calculated 293 (280-300); Potassium 4.4 mEq/L (3.5-4.5); Sodium 140 mEq/L (136-145); eGFR For African Americans > 60 (> 60); eGFR For Non-African Americans 50 (> 60)
[2017-02-21] MEDS: *HR* Enoxaparin 40 MG/0.4 ML SYRINGE SQ SCH (06:17)
[2017-02-21] MEDS: Ipratropium/Albuterol Neb 3 ML IH PRN ×3 (07:26→21:43)
[2017-02-21] MEDS: Psyllium 1 PACKET POWD.PACK PO SCH ×2 (08:24→20:45)
[2017-02-21] MEDS: Ondansetron ODT 4 MG TAB.RAPDIS SL PRN ×2 (09:18→17:13)
[2017-02-21] MEDS: Budesonide/Formoterol 160/4.5 MDI IH SCH ×2 (09:57→21:44)
[2017-02-21] MEDS: Bumetanide 1 MG TABLET PO SCH (10:14)
[2017-02-21] MEDS: Cholecalciferol (D-3) 1,000 UNIT TABLET PO SCH (10:15)
[2017-02-21] MEDS: Loratadine 10 MG TABLET PO SCH (10:15)
[2017-02-21] MEDS: Magnesium Oxide 400 MG TABLET PO SCH ×2 (10:16→20:40)
[2017-02-21] MEDS: INCRUSE ELIPTA IH SCH (10:16)
[2017-02-21] MEDS: Simethicone 80 MG TAB.CHEW PO PRN (10:20)
[2017-02-21] MEDS: *HR* OxyCODONE/APAP 10/325 TABLET PO PRN ×3 (10:21→20:42)
[2017-02-21] MEDS: DALIRESP 500MCG PO SCH (10:23)
[2017-02-21] MEDS: Ketoconazole Shampoo 120 ML BOTTLE TP SCH (10:23)
[2017-02-21] MEDS: Fluticasone Propionate Nasal 50 MCG/SPRAY BOTTLE NS SCH (12:57)
[2017-02-21] MEDS: Azelastine 0.1% Nasal Spray 30 ML BOTTLE NS SCH (12:57)
[2017-02-21] MEDS: ClonazePAM 0.5 MG TABLET PO PRN (20:41)
[2017-02-22] MEDS: Azelastine 0.1% Nasal Spray 30 ML BOTTLE NS SCH ×3 (02:23→20:02)
[2017-02-22] MEDS: *HR* Enoxaparin 40 MG/0.4 ML SYRINGE SQ SCH (06:26)
[2017-02-22] MEDS: Ipratropium/Albuterol Neb 3 ML IH PRN ×3 (08:22→22:27)
[2017-02-22] MEDS: Budesonide/Formoterol 160/4.5 MDI IH SCH ×2 (08:23→22:27)
[2017-02-22] MEDS: Bumetanide 1 MG TABLET PO SCH (08:58)
[2017-02-22] MEDS: Loratadine 10 MG TABLET PO SCH (08:58)
[2017-02-22] MEDS: Magnesium Oxide 400 MG TABLET PO SCH ×2 (08:59→19:54)
[2017-02-22] MEDS: *HR* OxyCODONE/APAP 10/325 TABLET PO PRN (09:00)
[2017-02-22] MEDS: Cholecalciferol (D-3) 1,000 UNIT TABLET PO SCH (09:00)
[2017-02-22] MEDS: Psyllium 1 PACKET POWD.PACK PO SCH ×2 (09:01→19:56)
[2017-02-22] MEDS: Fluticasone Propionate Nasal 50 MCG/SPRAY BOTTLE NS SCH (09:05)
[2017-02-22] MEDS: DALIRESP 500MCG PO SCH (09:17)
[2017-02-22] MEDS: INCRUSE ELIPTA IH SCH (09:17)
[2017-02-22] MEDS: Ondansetron ODT 4 MG TAB.RAPDIS SL PRN ×2 (09:24→15:48)
[2017-02-22] MEDS: ClonazePAM 0.5 MG TABLET PO PRN (13:46)
--- NOTE | 2017-02-22 15:14 | Internal Med Progress Note ---
Date of Encounter: 02/22/17 Time of Encounter: 14:55 - Assessment and plan (1) Partial small bowel obstruction Current Visit: No Status: Acute Assessment and plan: February 05. Status post lysis of adhesions and partial small bowel resection with primary anastomosis. Continue wound VAC and other intervention as per Dr. Reed February 11. Seen by Dr. Reed today. Continue present management February 13. Continue present management. I will order abdominal/pelvic and chest CT since he has persistent bandemia February 15. Abdominal/pelvis CT scan was generally unremarkable. Continue present management. February 16. Continue wound VAC. WBC remains normal with no bandemia February 22. Continue present management. Anticipate discharge home February 24. (2) HTN (hypertension) Current Visit: No Status: Chronic Assessment and plan: February 05. Continue metoprolol, Bumex, and Cozaar. February 06. Blood pressure is borderline low. We will discontinue Cozaar and clonidine. Continue metoprolol and Bumex for now February 11. Continue metoprolol and Bumex Qualifiers: Hypertension type: essential hypertension Qualified Code(s): I10 - Essential (primary) hypertension (3) Obstructive sleep apnea Current Visit: No Status: Chronic Assessment and plan: February 05. Continue CPAP/BiPAP as at home (4) Anemia Current Visit: No Status: Chronic Assessment and plan: February 05. Serum iron and transferrin saturation are low but transferrin is also low with ferritin significantly elevated. Continue to monitor CBC. February 07. Hemoglobin has decreased to 9.1. We will continue to monitor. February 08. Hemoglobin has declined further to 8.6. Will discontinue aspirin for now. February 11. We will recheck labs in a.m. February 13. Hemoglobin continues to decline slowly. Will order CT as per above February 15. We will check CBC and other labs in a.m. February 16. Hemoglobin has improved to 7.6. Continue present management. February 18. Recheck labs in a.m. February 20. Hemoglobin was stable at 7.5 yesterday. We will recheck in a.m. Qualifiers: Anemia type: iron deficiency Iron deficiency anemia type: chronic blood loss Qualified Code(s): D50.0 - Iron deficiency anemia secondary to blood loss (chronic) (5) Edema Current Visit: Yes Status: Chronic Assessment and plan: February 05. Remain off Norvasc and continue Bumex. Veronica 2. Continues to improve off Norvasc and using Bumex February 08. Will order RASHMI hose. We will increase Bumex to 2 mg daily. February 11. Continued RASHMI hose and present dose Bumex. February 13. Bn peptide remains normal. Continue Bumex and RASHMI hose February 20. I strongly encouraged him to wear RASHMI hose. Continue Bumex at present dose. Qualifiers: Edema type: unspecified Qualified Code(s): R60.9 - Edema, unspecified (6) Borderline diabetes Current Visit: No Status: Chronic Assessment and plan: February 05. Hemoglobin A1c was 6.0% on 12/20/2016. He is diet controlled at present. (7) Pneumonia Current Visit: No Status: Acute Assessment and plan: February 05. Will give IV Zosyn and Levaquin with Robitussin and probiotic February 06. Continue IV Zosyn and Levaquin February 08. IV access was lost without success in regaining it on multiple attempts. We will change to oral antibiotics. February 11. We will discontinue antibiotics since he has completed a 7 day course. February 13. Remain off antibiotics for now. We will do chest CT as per above since he has persistent bandemia February 15. Chest CT showed equivocal right lower lung infiltrate. He does not clinically have pneumonia at this time. We will recheck CBC in a.m. February 16. Remains resolved clinically. Will not workup or treat further. February 20. We will check CBC and chest x-ray since he complains of productive cough. February 22. Chest x-ray of 02/20/2017 showed improved left base and unchanged right base infiltrates. Continue to observe without further Rx. Qualifiers: Pneumonia type: due to unspecified organism Laterality: left Lung location: lower lobe of lung Qualified Code(s): J18.1 - Lobar pneumonia, unspecified organism (8) Hypomagnesemia Current Visit: Yes Status: Acute Assessment and plan: February 08. We will give magnesium oxide and monitor labs February 11. Continue magnesium oxide. Recheck labs in a.m. February 13. Improving. Continue magnesium oxide. February 15. Recheck labs in a.m. February 18. Recheck labs in a.m. (9) Hypokalemia Current Visit: Yes Status: Acute Assessment and plan: February 08. Will increase potassium chloride dose February 11. Recheck labs in a.m. February 13. Continue present dose potassium supplement February 15. Recheck labs in a.m. February 16. Potassium has risen to 4.7. We will decrease potassium chloride dose to 20 meq twice a day. February 18. Recheck labs in a.m. February 20. Recheck labs in a.m. February 22. Potassium level was normal at 4.4. Continue present dose supplementation. - Subjective Interval history: February 05. He states his dyspnea has worsened. He has cough productive of green/ yellow sputum February 06. He states his dyspnea is slightly lessened. He complains of some discomfort in his left knee. February 07. His dyspnea is improved. He still has some discomfort in his left thigh. February 08. His dyspnea remains improved. He does not mention pain in his left thigh now. He does note edema has persisted. February 11. His dyspnea has improved. He has dysuria. February 13. States his wound VAC machine malfunctioned yesterday. He still having some nonspecific abdominal fullness and slight discomfort. February 15. He has no new complaints except he feels occasionally like his left side is weaker than his right. He also reports occasional sporadic shaking of his left arm and leg. He does not have altered consciousness during these episodes. February 16. He has no new complaints. He still complains he shakes when he attempts to hold a cup of coffee. February 18. He reports green/yellow mucus from coughing. He had vomiting yesterday after eating but that has lessened today. He states Dr. Reed evaluated him this morning and seemed pleased with his wound progress February 20. He reports ongoing yellow mucus with coughing. He has had no vomiting but states he does have some epigastric discomfort. February 22. He still has some coughing. He did not mention epigastric discomfort today. - Constitutional Vitals: Temp Pulse Resp BP Pulse Ox 97.5 F L 95 18 153/75 97 02/22/17 06:23 02/22/17 08:57 02/22/17 08:23 02/22/17 08:57 02/22/17 08:57 Exam: He is resting comfortably in a chair. His feet are elevated. He is wearing RASHMI hose. There is still 1+ edema of his legs through the RASHMI hose. His heart is regular without murmurs gallops or ectopics. Lungs are clear. I reviewed his medications and lab results. Internal Medicine: Result - Labs CBC & Chem 7: 02/21/17 04:35 02/21/17 04:35 - ABG Interpretation ABG results: PT/INR, D-dimer D-Dimer 2095 ng/mLFEU (0-500) H 02/07/17 05:22 - VTE Documentation of Mechanical Device: Graduated compression elastic hosiery Consult Discharge Plan - Plan Referrals: Radhames Lewis DO [Primary Care Provider] - 1 week
[2017-02-22] MEDS: Simethicone 80 MG TAB.CHEW PO PRN (18:41)
[2017-02-23] MEDS: *HR* Enoxaparin 40 MG/0.4 ML SYRINGE SQ SCH (06:17)
[2017-02-23] MEDS: *HR* OxyCODONE/APAP 10/325 TABLET PO PRN ×3 (07:23→21:33)
[2017-02-23] MEDS: Ipratropium/Albuterol Neb 3 ML IH PRN ×4 (07:32→22:00)
[2017-02-23] MEDS: Budesonide/Formoterol 160/4.5 MDI IH SCH ×2 (07:33→22:01)
[2017-02-23] MEDS: Cholecalciferol (D-3) 1,000 UNIT TABLET PO SCH (09:08)
[2017-02-23] MEDS: Loratadine 10 MG TABLET PO SCH (09:08)
[2017-02-23] MEDS: Bumetanide 1 MG TABLET PO SCH (09:08)
[2017-02-23] MEDS: Magnesium Oxide 400 MG TABLET PO SCH ×2 (09:09→19:48)
[2017-02-23] MEDS: Azelastine 0.1% Nasal Spray 30 ML BOTTLE NS SCH ×2 (09:16→19:52)
[2017-02-23] MEDS: Psyllium 1 PACKET POWD.PACK PO SCH ×2 (09:16→19:49)
[2017-02-23] MEDS: Fluticasone Propionate Nasal 50 MCG/SPRAY BOTTLE NS SCH (09:16)
[2017-02-23] MEDS: DALIRESP 500MCG PO SCH (09:36)
[2017-02-23] MEDS: INCRUSE ELIPTA IH SCH (09:36)
[2017-02-23] MEDS: Ketoconazole Shampoo 120 ML BOTTLE TP SCH (09:36)
[2017-02-23] MEDS: Ondansetron ODT 4 MG TAB.RAPDIS SL PRN (18:54)
[2017-02-23] MEDS: ClonazePAM 0.5 MG TABLET PO PRN (22:08)
[2017-02-24] MEDS: *HR* Enoxaparin 40 MG/0.4 ML SYRINGE SQ SCH (06:22)
[2017-02-24 06:45] VITALS: BP 133/77
[2017-02-24] MEDS: Ipratropium/Albuterol Neb 3 ML IH PRN ×2 (07:55→12:52)
[2017-02-24] MEDS: Budesonide/Formoterol 160/4.5 MDI IH SCH (07:58)
[2017-02-24] MEDS: Ondansetron ODT 4 MG TAB.RAPDIS SL PRN (08:40)
[2017-02-24] MEDS: *HR* OxyCODONE/APAP 10/325 TABLET PO PRN (08:40)
[2017-02-24] MEDS: Psyllium 1 PACKET POWD.PACK PO SCH (08:40)
[2017-02-24] MEDS: Bumetanide 1 MG TABLET PO SCH (08:41)
[2017-02-24] MEDS: Cholecalciferol (D-3) 1,000 UNIT TABLET PO SCH (08:41)
[2017-02-24] MEDS: Magnesium Oxide 400 MG TABLET PO SCH (08:41)
[2017-02-24] MEDS: Loratadine 10 MG TABLET PO SCH (08:41)
[2017-02-24] MEDS: Azelastine 0.1% Nasal Spray 30 ML BOTTLE NS SCH (08:49)
[2017-02-24] MEDS: INCRUSE ELIPTA IH SCH (08:50)
[2017-02-24] MEDS: Fluticasone Propionate Nasal 50 MCG/SPRAY BOTTLE NS SCH (08:50)
[2017-02-24] MEDS: DALIRESP 500MCG PO SCH (08:50)
--- NOTE | 2017-02-24 10:28 | Discharge Summary ---
Date of Encounter: 02/24/17 Time of Encounter: 09:50 - Discharge Diagnosis (1) Partial small bowel obstruction Priority: Primary Status: Acute (2) HTN (hypertension) Priority: Secondary Status: Chronic Qualifiers: Hypertension type: essential hypertension Qualified Code(s): I10 - Essential (primary) hypertension (3) Obstructive sleep apnea Priority: Secondary Status: Chronic (4) Anemia Priority: Secondary Status: Chronic Qualifiers: Anemia type: iron deficiency Iron deficiency anemia type: chronic blood loss Qualified Code(s): D50.0 - Iron deficiency anemia secondary to blood loss (chronic) (5) Edema Priority: Secondary Status: Chronic Qualifiers: Edema type: unspecified Qualified Code(s): R60.9 - Edema, unspecified (6) Borderline diabetes Priority: Secondary Status: Chronic (7) Pneumonia Priority: Secondary Status: Resolved Qualifiers: Pneumonia type: due to unspecified organism Laterality: left Lung location: lower lobe of lung Qualified Code(s): J18.1 - Lobar pneumonia, unspecified organism (8) Hypomagnesemia Priority: Secondary Status: Acute (9) Hypokalemia Priority: Secondary Status: Acute - Discharge Medications Prescriptions: Ondansetron ODT [Zofran ODT] 4 mg SL Q4HR PRN #30 tab.rapdis PRN Reason: Nausea And Vomiting Magnesium Oxide [Mag-Ox] 400 mg PO DAILY #15 tablet Metoprolol [Lopressor] 25 mg PO BID #60 tablet Potassium Chloride 20 meq PO DAILY #15 tab.er.prt Home Medications: Albuterol Sulfate [Albuterol Inhaler] 2 puff IH Q4HR PRN 04/13/16 [History] Azelastine 0.1% Nasal [place] [Astelin] 1 spray NS BID 04/13/16 [History] Budesonide/Formoterol 160/4.5 [Symbicort 160/4.5] 2 puff IH BIDR 04/13/16 [ History] ClonazePAM [Klonopin] 1 mg PO BID PRN 04/13/16 [History] Docusate [Colace] 300 mg PO BID PRN 04/13/16 [History] Ergocalciferol (VITAMIN D2) [Vitamin D] 400 unit PO DAILY 04/13/16 [History] Esomeprazole Magnesium [Nexium] 40 mg PO BID 04/13/16 [History] Fluticasone Propionate Nasal [Flonase] 2 spray NS DAILY 04/13/16 [History] Ketoconazole Shampoo [Nizoral Shampoo] 1 appl TP 3XW 04/13/16 [History] Polyethylene Glycol 3350 [MiraLAX] 17 gm PO DAILY 04/13/16 [History] Psyllium Seed (with Sugar) [Metamucil Powder] 1 each PO BID 04/13/16 [History] Roflumilast [Daliresp] 500 mcg PO DAILY 04/13/16 [History] Sodium Chloride [[place] Saline] 1 spray NS BID PRN 04/13/16 [History] Montelukast [Singulair] 10 mg PO HS #30 tablet 10/28/16 [Rx] Metoclopramide [Reglan] 10 mg PO ACHS 12/01/16 [History] Umeclidinium [place] [Incruse Ellipta] 62.5 mcg IH DAILY 12/01/16 [History] Oxygen 3 l .ROUTE AD 12/18/16 [History] Losartan [Cozaar] 25 mg PO DAILY #30 tablet 01/07/17 [Rx] Furosemide [Lasix] 40 mg PO BID #60 tablet 02/03/17 [Rx] GuaiFENesin ER [Mucinex] 600 mg PO BID PRN #0 tbbp.12hr 02/03/17 [Rx] OxyCODONE/APAP 10/325 [Percocet 10/325 MG] 1 each PO Q6HR PRN #20 tablet [Rx] Cetirizine HCl [Zyrtec] 10 mg PO DAILY PRN #0 02/24/17 [Rx] Magnesium Oxide [Mag-Ox] 400 mg PO DAILY #15 tablet 02/24/17 [Rx] Metoprolol [Lopressor] 25 mg PO BID #60 tablet 02/24/17 [Rx] Ondansetron ODT [Zofran ODT] 4 mg SL Q4HR PRN #30 tab.rapdis 02/24/17 [Rx] Potassium Chloride 20 meq PO DAILY #15 tab.er.prt 02/24/17 [Rx] Allergies/Adverse Reactions: Allergies morphine Allergy (Verified 01/18/17 10:35) Difficulty Breathing sulfamethoxazole [From Bactrim] Allergy (Verified 01/18/17 10:35) Hives trimethoprim [From Bactrim] Allergy (Verified 01/18/17 10:35) Hives codeine Adverse Reaction (Verified 01/18/17 10:35) Nausea Date of admission: 02/03/17 16:37 Primary care physician: Radhames Nguyen Consults: 02/03/17 17:25 Consult to Occupational Therapy [CONS] Routine Comment: evaluate, develop, and implement plan of care Consult to Physical Therapy [CONS] Routine Comment: evaluate,develop, implement plan of care Consult to [facility] [CONS] Routine Reason for SW Consult: discharge planning 02/04/17 08:01 Consult to Physician [CONS] Routine Consulting Provider: Davidson Reed Reason for Consult: Change in wound drainage amount and consistency Call Completed: Yes 02/14/17 10:01 Consult to Podiatry [CONS] Routine Consulting Provider: [facility] Reason for Consult: has ingrown toenails. Time Notified: 10:09 Call Completed: Yes - Patient Status Disposition: Home Health Service Functional capacity at discharge: uses cane/walker Overall status at discharge: patient is progressing back to baseline - Discharge Instructions Follow Up With: Radhames Lewis DO [Primary Care Provider] - 1 week - Diet and Activity Activity: as per physical therapy Diet: advance to your usual diet Hospital course: Mr. Contreras is a 61 year old male who was transferred to [facility] swing bed 2016 after a January 18 stay at [facility] for bowel obstruction. He underwent partial small bowel resection with lysis of adhesions by Dr. Reed on 2016. His postop course was complicated a difficult extubation and delay of oral feedings requiring TPN briefly. It was felt he would benefit from swing bed stay and ongoing therapy prior to returning to independent living at home. Initial orders were written by the discharging physicians at [facility]. I saw him on February 04 and performed the swing bed history and physical. He continued wound VAC throughout his swing bed stay. Dr. Reed saw him in follow-up and will continue to follow him after discharge home from swing bed. He had no new complications from the surgery or wound VAC use. He did complain of intermittent mild nausea and abdominal wall discomfort. His Norvasc was discontinued because of edema. Metoprolol was increased for borderline tachycardia. Cozaar was continued. His blood pressure remains satisfactory. Anemia testing was done and showed no clear factor deficiency. Aspirin was discontinued and his hemoglobin was stable at approximately 7.5 for the last 10 days of hospitalization. He was given Bumex instead of Lasix during his hospital stay. Norvasc was discontinued as per above. He was prescribed RASHMI hose. His edema significantly improved but did not completely resolve. He will revert back to Lasix upon discharge and continued RASHMI hose use. He treated for pneumonia with Zosyn and Levaquin IV initially. Antibiotics were discontinued after a 7 day course and he had no further respiratory complaints. Magnesium level was low and he was given supplemental magnesium oxide. This will be continued at a lower dose for an additional 15 days after discharge. His PCP can monitor labs as needed. On February 24 arrangements were complete for him to be discharged home. He will follow with his PCP Dr. Lewis within 1 week. He will follow with Dr. Reed as directed for surgical follow-up. He will have home health nurses who will monitor his overall progress and his wound VAC therapy. Continue home oxygen and home BiPAP as prior to admission. - Time Spent with Patient Total time spent providing and/or coordinating discharge services: - Constitutional Vitals: Temp Pulse Resp BP Pulse Ox 98.7 F 99 15 133/77 94 02/24/17 06:43 02/24/17 06:43 02/24/17 07:59 02/24/17 06:43 02/24/17 09:46 - VTE Documentation of Mechanical Device: Graduated compression elastic hosiery
--- NOTE | 2017-02-24 10:43 | Physician Discharge Referral ---
Home Health/Hosp Referral Info Transfer to: Home Health Attending Provider: Jose Alberto Provider in Charge Post Discharge: PCP (Radhames Lewis M.D.) - Diagnosis (1) Partial small bowel obstruction Priority: Primary Status: Acute (2) HTN (hypertension) Priority: Secondary Status: Chronic (3) Obstructive sleep apnea Priority: Secondary Status: Chronic (4) Anemia Priority: Secondary Status: Chronic (5) Edema Priority: Secondary Status: Chronic (6) Borderline diabetes Priority: Secondary Status: Chronic (7) Pneumonia Priority: Secondary Status: Resolved (8) Hypomagnesemia Priority: Secondary Status: Acute (9) Hypokalemia Priority: Secondary Status: Acute - Respiratory Orders Oxygen / L per min (2 L/m by nasal cannula /. BiPAP at nighttime as previously prescribed.) Smoking Cessation: Smoking cessation has been advised. For more information, call the [place] Tobacco Quit Line at 5-467-GWXC-NOW. - Diet/Nutrition Diet/Nutrition Orders: No Concentrated Sweets - Activity Activity Orders: Walker - Services Needed Following services are medically necessary services: Nursing, Home Health Aide, Physical Therapy, Occupational Therapy - Transfer Medications Prescriptions: Ondansetron ODT [Zofran ODT] 4 mg SL Q4HR PRN #30 tab.rapdis PRN Reason: Nausea And Vomiting Magnesium Oxide [Mag-Ox] 400 mg PO DAILY #15 tablet Metoprolol [Lopressor] 25 mg PO BID #60 tablet Potassium Chloride 20 meq PO DAILY #15 tab.er.prt Home Medications: Albuterol Sulfate [Albuterol Inhaler] 2 puff IH Q4HR PRN 04/13/16 [History] Azelastine 0.1% Nasal [place] [Astelin] 1 spray NS BID 04/13/16 [History] Budesonide/Formoterol 160/4.5 [Symbicort 160/4.5] 2 puff IH BIDR 04/13/16 [ History] ClonazePAM [Klonopin] 1 mg PO BID PRN 04/13/16 [History] Docusate [Colace] 300 mg PO BID PRN 04/13/16 [History] Ergocalciferol (VITAMIN D2) [Vitamin D] 400 unit PO DAILY 04/13/16 [History] Esomeprazole Magnesium [Nexium] 40 mg PO BID 04/13/16 [History] Fluticasone Propionate Nasal [Flonase] 2 spray NS DAILY 04/13/16 [History] Ketoconazole Shampoo [Nizoral Shampoo] 1 appl TP 3XW 04/13/16 [History] Polyethylene Glycol 3350 [MiraLAX] 17 gm PO DAILY 04/13/16 [History] Psyllium Seed (with Sugar) [Metamucil Powder] 1 each PO BID 04/13/16 [History] Roflumilast [Daliresp] 500 mcg PO DAILY 04/13/16 [History] Sodium Chloride [[place] Saline] 1 spray NS BID PRN 04/13/16 [History] Montelukast [Singulair] 10 mg PO HS #30 tablet 10/28/16 [Rx] Metoclopramide [Reglan] 10 mg PO ACHS 12/01/16 [History] Umeclidinium [place] [Incruse Ellipta] 62.5 mcg IH DAILY 12/01/16 [History] Oxygen 3 l .ROUTE AD 12/18/16 [History] Losartan [Cozaar] 25 mg PO DAILY #30 tablet 01/07/17 [Rx] Furosemide [Lasix] 40 mg PO BID #60 tablet 02/03/17 [Rx] GuaiFENesin ER [Mucinex] 600 mg PO BID PRN #0 tbbp.12hr 02/03/17 [Rx] OxyCODONE/APAP 10/325 [Percocet 10/325 MG] 1 each PO Q6HR PRN #20 tablet [Rx] Cetirizine HCl [Zyrtec] 10 mg PO DAILY PRN #0 02/24/17 [Rx] Magnesium Oxide [Mag-Ox] 400 mg PO DAILY #15 tablet 02/24/17 [Rx] Metoprolol [Lopressor] 25 mg PO BID #60 tablet 02/24/17 [Rx] Ondansetron ODT [Zofran ODT] 4 mg SL Q4HR PRN #30 tab.rapdis 02/24/17 [Rx] Potassium Chloride 20 meq PO DAILY #15 tab.er.prt 02/24/17 [Rx] Allergies/Adverse Reactions: Allergies morphine Allergy (Verified 01/18/17 10:35) Difficulty Breathing sulfamethoxazole [From Bactrim] Allergy (Verified 01/18/17 10:35) Hives trimethoprim [From Bactrim] Allergy (Verified 01/18/17 10:35) Hives codeine Adverse Reaction (Verified 01/18/17 10:35) Nausea Certification: Further, I certify that my clinical findings support that this patient is homebound (i.e. absences from home require considerable and taxing effort and are for medical reasons or baptism services or infrequently or short duration when for other reasons) because: Homebound Reason: Leaving home requires considerable and taxing effort due to condition (Wound VAC, continuous oxygen, deconditioned) Attestation: My signature below is to certify that this patient is under my care and that I, or nurse practitioner, or a physician's reference library assistant working with me, has a face-to -face encounter with this patient.
[2017-02-24] MEDS: ClonazePAM 0.5 MG TABLET PO PRN (11:35)
== END 2017-02-24 13:12 | disposition home health service (06) | DRG 945 ==
LOC: INPPIK 16:37
PROVIDERS: ADMIT Internal Medicine; ATTEND Internal Medicine